=== PATIENT | male | born 1950 | race Caucasian/White ===

== ENCOUNTER 2016-08-03 17:23 | Inpatient (IN) | payer MEDICARE, MEDICAID ==
[2016-08-03] MEDS ORDERED: Ketamine 50 mg/mL 10mL Vial IM STA (17:25)
[2016-08-03] MEDS ORDERED: Ketamine 50 mg/mL 10mL Vial ONE (17:25)
--- NOTE | 2016-08-03 17:26 | ED Physician Chart ---
Chief Complaint/HPI - Patient Information Date Seen:: 08/03/16 Time Seen:: 17:26 Chief Complaint:: agitation History of Present Illness:: 65-year-old male brought in by a nursing facility with acute, severe, constant, agitation that started sometime this morning. Has associated aggressive physical behavior towards staff and other patients. History of limited as patient is uncooperative and appears psychotic History provided by EMS and EMS run sheet Historian:: EMS Review:: Nurse's Note Reviewed, EMS run form Reviewed, Transfer documents Reviewed Review of Systems - Review of Systems Other: Complete system review apparently otherwise unremarkable except as noted in history of present illness. Difficult to obtain a thorough ROS due to uncooperative behavior and acute psychosis Past Medical History - Past Medical History Past Medical History: HTN, DM, Dementia, Other (history of UTIs) Family History: None Social History: Non Smoker, No Alcohol, No Drug Use Surgical History: None Psychiatricy History: Dementia Medication: Reviewed Family Medical History - Family Member Mother History Unknown: Yes Ethnicity: Non- Physical Exam - Physical Examination Other:: INITIAL VITAL SIGNS: Reviewed by me GENERAL: Alert and uncooperative and physically violent. Kicking EMS and trying to punch nursing staff HEAD: Head is normocephalic and atraumatic EYES: EOMI. PERRL. No scleral icterus. No conjunctival injection ENT: Moist mucous membranes. NECK: Supple. No masses. Full range of motion RESPIRATORY: No tachypnea. Clear breath sounds bilaterally. No wheezing, rales, or rhonchi CV: Regular rate and rhythm. No murmurs, rubs, or gallops ABDOMEN: Soft, non-distended, non-tender. No guarding. No rebound. No masses. EXTREMITIES: No deformity. No cyanosis. No edema. SKIN: Warm and dry. No obvious rashes. NEUROLOGIC: Alert and oriented. Face is symmetric. Speech is normal. Moves all extremities equally. Motor and sensory distally intact. Labs/Radiology/EKG Results - Lab Results Results: Lab Results 08/03/16 08/03/16 08/03/16 Range/Units 17:35 17:35 17:35 WBC 9.5 (4.8-10.8) Th/cmm RBC 4.60 (3.80-5.80) Mil/cmm Hgb 13.1 (12.6-17.4) gm/dL Hct 40.5 (39.0-49.0) % MCV 87.9 (80-99) fl MCH 28.5 (27.0-31.0) pg MCHC Differential 32.4 (28.0-36.0) pg RDW 13.2 (11.5-20.0) % Plt Count 222 (150-400) Th/cmm MPV 9.3 fl Neutrophils % 59.0 (40.0-80.0) % Lymphocytes % 32.5 (20.0-50.0) % Monocytes % 6.8 (2.0-10.0) % Eosinophils % 1.4 (0.0-5.0) % Basophils % 0.3 (0.0-2.0) % Sodium 145 (136-145) mEq/L Potassium 3.8 (3.5-5.1) mEq/L Chloride 106 (98-107) mEq/L Carbon Dioxide 24.7 (21.0-31.0) mEq/L Anion Gap 18.1 H (7.0-16.0) BUN 21 (7-25) mg/dL Creatinine 1.1 (0.7-1.3) mg/dL Est GFR ( Amer) > 60.0 (>90) ml/min Est GFR (Non-Af Amer) > 60.0 ml/min BUN/Creatinine Ratio 19.1 Glucose 129 H (70-105) mg/dL Calcium 9.3 (8.6-10.3) mg/dL Total Bilirubin 0.3 (0.3-1.0) mg/dL AST 10 L (13-39) U/L ALT 10 (7-52) U/L Alkaline Phosphatase 47 (34-104) U/L Total Protein 6.7 (6.0-8.3) gm/dL Albumin 4.0 L (4.2-5.5) gm/dL Globulin 2.7 gm/dL Albumin/Globulin Ratio 1.5 (1.0-1.8) Triglycerides 114 (<150) mg/dL Cholesterol 142 (<200) mg/dL LDL Cholesterol Direct 81 (75-193) mg/dL HDL Cholesterol 46 (23-92) mg/dL TSH 0.99 (0.34-5.60) uIU/ml Urine Source Urine Color Urine Clarity (CLEAR) Urine pH Ur Specific [place] (1.005-1.030) Urine Protein (NEGATIVE) mg/dL Urine Glucose (UA) (NEGATIVE) mg/dL Urine Ketones (NEGATIVE) mg/dL Urine Blood (NEGATIVE) Urine Nitrate (NEGATIVE) Urine Bilirubin (NEGATIVE) Urine Urobilinogen (0.2 - 1.0) E.U./dL Ur Leukocyte Esterase (NEGATIVE) Urine RBC (0-5) /hpf Urine WBC (0-5) /hpf Ur Epithelial Cells (FEW) /lpf Urine Bacteria (NONE SEEN) /hpf Salicylates 25.0 L (30.0-100.0) mg/L Urine Opiates Screen (NEGATIVE) Urine Methadone Screen (NEGATIVE) Acetaminophen < 10.0 L (10.0-30.0) ug/mL Ur Barbiturates Screen (NEGATIVE) Ur Tricyclics Screen (NEGATIVE) Ur Phencyclidine Scrn (NEGATIVE) Amphetamines Screen (NEGATIVE) U Methamphetamines Scrn (NEGATIVE) U Benzodiazepines Scrn (NEGATIVE) U Cocaine Metab Screen (NEGATIVE) U Cannabinoids Screen (NEGATIVE) Ethyl Alcohol < 10 (0-10) mg/dL 08/03/16 08/03/16 Range/Units 17:40 17:40 WBC (4.8-10.8) Th/cmm RBC (3.80-5.80) Mil/cmm Hgb (12.6-17.4) gm/dL Hct (39.0-49.0) % MCV (80-99) fl MCH (27.0-31.0) pg MCHC Differential (28.0-36.0) pg RDW (11.5-20.0) % Plt Count (150-400) Th/cmm MPV fl Neutrophils % (40.0-80.0) % Lymphocytes % (20.0-50.0) % Monocytes % (2.0-10.0) % Eosinophils % (0.0-5.0) % Basophils % (0.0-2.0) % Sodium (136-145) mEq/L Potassium (3.5-5.1) mEq/L Chloride (98-107) mEq/L Carbon Dioxide (21.0-31.0) mEq/L Anion Gap (7.0-16.0) BUN (7-25) mg/dL Creatinine (0.7-1.3) mg/dL Est GFR ( Amer) (>90) ml/min Est GFR (Non-Af Amer) ml/min BUN/Creatinine Ratio Glucose (70-105) mg/dL Calcium (8.6-10.3) mg/dL Total Bilirubin (0.3-1.0) mg/dL AST (13-39) U/L ALT (7-52) U/L Alkaline Phosphatase (34-104) U/L Total Protein (6.0-8.3) gm/dL Albumin (4.2-5.5) gm/dL Globulin gm/dL Albumin/Globulin Ratio (1.0-1.8) Triglycerides (<150) mg/dL Cholesterol (<200) mg/dL LDL Cholesterol Direct (75-193) mg/dL HDL Cholesterol (23-92) mg/dL TSH (0.34-5.60) uIU/ml Urine Source CLEAN C Urine Color YELLOW Urine Clarity CLEAR (CLEAR) Urine pH 5.5 Ur Specific [place] 1.025 (1.005-1.030) Urine Protein 30 H (NEGATIVE) mg/dL Urine Glucose (UA) NEGATIVE (NEGATIVE) mg/dL Urine Ketones 15 H (NEGATIVE) mg/dL Urine Blood SMALL H (NEGATIVE) Urine Nitrate NEGATIVE (NEGATIVE) Urine Bilirubin NEGATIVE (NEGATIVE) Urine Urobilinogen 0.2 (0.2 - 1.0) E.U./dL Ur Leukocyte Esterase NEGATIVE (NEGATIVE) Urine RBC 2-5 H (0-5) /hpf Urine WBC NONE SEEN (0-5) /hpf Ur Epithelial Cells NONE SEEN (FEW) /lpf Urine Bacteria NONE SEEN (NONE SEEN) /hpf Salicylates (30.0-100.0) mg/L Urine Opiates Screen NEGATIVE (NEGATIVE) Urine Methadone Screen NEGATIVE (NEGATIVE) Acetaminophen (10.0-30.0) ug/mL Ur Barbiturates Screen NEGATIVE (NEGATIVE) Ur Tricyclics Screen NEGATIVE (NEGATIVE) Ur Phencyclidine Scrn NEGATIVE (NEGATIVE) Amphetamines Screen NEGATIVE (NEGATIVE) U Methamphetamines Scrn NEGATIVE (NEGATIVE) U Benzodiazepines Scrn NEGATIVE (NEGATIVE) U Cocaine Metab Screen NEGATIVE (NEGATIVE) U Cannabinoids Screen NEGATIVE (NEGATIVE) Ethyl Alcohol (0-10) mg/dL - EKG Interpretations Comments:: 12-lead EKG Interpretation by Beba Proctor MD: Normal Sinus Rhythm with ventricular rate of 84 beats per minute Normal axis Normal intervals No acute ST or T wave changes. No obvious STEMI ED Septic Shock - . Is Septic Shock (SBP<90, OR Lactate>4 mmol\L) present?: No Reassessment (Disposition) - Reassessment Reassessment:: Patient arrived with extremely aggressive behavior. He was kicking the EMS workers and trying to punch our nursing staff here in the ER. After multiple attempts to divert the patient from his aggressive behavior, we did give intramuscular sedation. Patient then relaxed and calm down. Cooperative. I will signs and labs were able to be drawn. Ultimately patient was cleared for admission to the geriatric psych unit. Reassessment Condition:: Unchanged - Diagnosis Diagnosis:: Acute psychosis, NOS - Aftercare/Follow up Instructions Aftercare/Follow-Up Instructions:: Counseled pt regarding lab results/diagnosis & need follow up, Refer to Discharge Instructions - Patient Disposition Discharge/Transfer:: Acute Care w/in this hosp Admitted to:: [facility] Admitting Medical Physician:: Paul Medellin Admitting Psych Physician:: Dante Higgins Condition at Disposition:: Stable
[2016-08-03 17:47] LABS: % BASOPHILS 0.3 % (0.0-2.0); % EOSINOPHILS 1.4 % (0.0-5.0); % LYMPHOCYTES 32.5 % (20.0-50.0); % MONOCYTES 6.8 % (2.0-10.0); HEMATOCRIT 40.5 % (39.0-49.0); HEMOGLOBIN 13.1 gm/dL (12.6-17.4); MEAN CELL VOLUME 87.9 fl (80-99); MEAN CORPUSCULAR HEMOGLOBIN 28.5 pg (27.0-31.0); MEAN CORPUSCULAR HGB CONC 32.4 pg (28.0-36.0); MEAN PLATELET VOLUME 9.3 fl; NEUTROPHILE ABSOLUTE 5.7 Th/cmm (1.8-8.0); PLATELET COUNT 222 Th/cmm (150-400); RED CELL DISTRIBUTION WIDTH 13.2 % (11.5-20.0); WHITE BLOOD COUNT 9.5 Th/cmm (4.8-10.8)
[2016-08-03 19:03] LABS: URINE BILIRUBIN NEGATIVE (NEGATIVE); URINE BLOOD SMALL (NEGATIVE); URINE COLOR YELLOW; URINE GLUCOSE (UA) NEGATIVE (NEGATIVE); URINE KETONE 15 mg/dL (NEGATIVE); URINE PH 5.5; URINE PROTEIN 30 mg/dL (NEGATIVE); URINE UROBILINOGEN 0.2 E.U./dL (0.2 - 1.0)
[2016-08-03 19:04] LABS: ACETAMINOPHEN < 10.0 ug/mL (10.0-30.0); ALB/GLOB RATIO 1.5 (1.0-1.8); ALKALINE PHOSPHATASE 47 U/L (34-104); ANION GAP 18.1 (7.0-16.0); BILIRUBIN,TOTAL 0.3 mg/dL (0.3-1.0); BUN - UREA NITROGEN 21 mg/dL (7-25); BUN/CREATININE RATIO 19.1; CALCIUM SERUM 9.3 mg/dL (8.6-10.3); CARBON DIOXIDE 24.7 mEq/L (21.0-31.0); CHLORIDE 106 mEq/L (98-107); CHOLESTEROL 142 mg/dL (<200); CREATININE - SERUM 1.1 mg/dL (0.7-1.3); GLUCOSE 129 mg/dL (70-105); POTASSIUM SERUM 3.8 mEq/L (3.5-5.1); SGOT 10 U/L (13-39); SGPT/ALT 10 U/L (7-52); SODIUM SERUM 145 mEq/L (136-145); TRIGLYCERIDES 114 mg/dL (<150)
[2016-08-03 19:04] LABS: URINE BACTERIA NONE SEEN /hpf (NONE SEEN); URINE EPITHELIAL CELLS NONE SEEN /lpf (FEW); URINE WBC NONE SEEN /hpf (0-5)
[2016-08-03 19:27] LABS: AMPHETAMINE URINE NEGATIVE (NEGATIVE); BARBITURATES URINE NEGATIVE (NEGATIVE); METHADONE URINE NEGATIVE (NEGATIVE)
--- NOTE | 2016-08-03 21:19 | Admit Criteria Form ---
Admit Criteria Forms - Admit Criteria Diagnosis: PSYCHIATRIC DISORDERS Clinical Indications for Inpatient Care (Place 'X' for any and all applicable criteria): Ongoing inpatient care may be needed for ANY ONE of the following(1)(2)(3)(4)(6) (7)(8): [ ]I. Danger to self or others not manageable at lower level of care. [ ]II. Grave disability (eg, inability to perform self care necessary at lower level of care) [ ]III. Agitation or inappropriate behavior interfering with care for primary condition (eg, attempting to discontinue lines or drains prematurely, unable to cooperate with respiratory care) [X]IV. Severe disability or disorder indicated by ALL of the following: [X]a) Severe behavioral health disorder-related symptoms or condition indicated by ANY ONE of the following: [ ]i) Severe problem with cognition, memory, judgment, or impulse control [X]ii) Severe clinical manifestations (eg, hallucinations, delusions, other acute psychotic symptoms, doroteo, extreme agitation or anxiety) [X]b) Patient management at lower level of care is not feasible until acute intervention or modification is initiated. Extended stay beyond goal length of stay for the primary condition may be indicated when ANY ONE of the following is present: (1)(2)(3)(4): [ ]a) Patient is a danger to self or others and not manageable at lower level of care. [ ]b) Behavior crisis management, including physical or chemical restraints, is required and is not available at a lower level of care. [ ]c) Behavioral symptoms (e.g., agitation, somnolence, inappropriate behavior) are present, and are not manageable at a lower level of care. [ ]d) Patient cannot understand follow-up treatment and crisis plan. [ ]e) Provider and supports are not sufficiently available at lower level of care. [ ]f) Patient cannot participate (e.g., verify absence of plan for harm) and is in needed of monitoring. The original [facility] content created by [facility] has been revised. The portions of the content which have been revised are identified through the use of italic text or in bold, and [facility] has neither reviewed nor approved the modified material. All other unmodified content is copyright [facility]. Please see references footnoted in the original [facility] edition 2016
[2016-08-03] MEDS ORDERED: Maalox 30 mL Cup PO PRN (21:52)
[2016-08-03] MEDS ORDERED: Magnesium Hydroxide (MOM) 30 mL UDC PO PRN (21:52)
[2016-08-03 22:22] VITALS: BP 136/72
[2016-08-04] MEDS: Multivitamin Tab PO SCH (08:43)
[2016-08-04] MEDS: Ferrous Sulfate 325 MG TAB PO SCH (08:43)
[2016-08-04] MEDS: Atorvastatin Calcium 10 MG TAB PO SCH ×2 (20:40→21:00)
[2016-08-04] MEDS: INSULIN ASPART SLIDING SCALE 100 UNITS/ML UNIT SUBQ SCH (21:15)
--- NOTE | 2016-08-04 22:16 | History & Physical ---
ADMIT DATE: 08/04/2016 REASON FOR ADMISSION: Psychiatric disorder. HISTORY OF PRESENT ILLNESS: This is a 65-year-old male with underlying history of diabetes, hyperlipidemia, seizure disorders, dementia, psychiatric disorders, who was admitted to [facility] for evaluation of underlying exacerbation of psychiatric disorders by Dr. Higgins. Dr. Higgins requested medical H and P on this patient. The patient denies any complaints at the time of evaluation. He seems to have very confused. PAST MEDICAL HISTORY: Diabetes, hyperlipidemia, seizure disorders, psych disorders, and dementia. PAST SURGICAL HISTORY: None reported. SOCIAL HISTORY: Lives in nursing facility. No reported alcohol, tobacco, or street drug use. CURRENT MEDICATIONS: The patient is currently on acetaminophen, Lipitor, Plavix, Depakote, docusate, Aricept, Pepcid, iron sulphate, insulin, magnesium, Namenda, metformin, Seroquel, and Ambien. REVIEW OF SYSTEMS: As per HPI, the patient seems somewhat confused, difficult to obtain. PHYSICAL EXAMINATION: VITAL SIGNS: Temperature 97.7, pulse 66, respirations 20, blood pressure 123/69, and oxygen 99 % on room air. GENERAL APPEARANCE: The patient does not seem in acute distress. HEART: S1, S2 normal. LUNGS: Clear to auscultation. ABDOMEN: Soft, nontender, and nondistended. NEUROLOGIC: The patient is awake, confused. Moves all extremities. Grossly nonfocal. AVAILABLE LABORATORY DATA: Reviewed ASSESSMENT: 1. Diabetes. 2. Hyperlipidemia. 3. Seizure disorder. 4. Alzheimer dementia. 5. Psych disorder. PLAN: Discussed with the patient regarding importance of current medications and advised to take medications. Continue current medications. Psych evaluation and management per psychiatrist. Blood sugars will be monitored by [employer] and sliding scale will be given. Discussed the patient's condition and plan of care with the nursing staff. Thank you, Dr. Ronaldo Davies for allowing me to participate in the care of this patient. The patient appeared medically stable to participate in activity at the [facility]. JOB# [id number] MTDJosh
--- NOTE | 2016-08-04 22:26 | Psychosocial Evaluation ---
DATE OF SERVICE: 08/04/2016 JUSTIFICATION FOR HOSPITALIZATION: The patient was brought in by nursing facilities with acute, severe, constant agitation, and aggressive behaviors. CHIEF COMPLAINT: "What you want." HISTORY OF PRESENT ILLNESS: This is a 65-year-old male, agitated, at nursing facility, aggressive towards staff, violent towards staff, uncooperative. On [id number], not answering any questions, "What you want? Go away." PAST PSYCHIATRIC HISTORY: Noted history of dementia. FAMILY HISTORY: Unknown. SOCIAL HISTORY: Living in a nursing facility, unclear social support system, nonsmoker, no alcohol, an no drugs. MEDICATIONS: Reviewed. MENTAL STATUS EXAMINATION: Stated age, a little eye contact. Speech decreased content, not really communicating with me. Her mood is "okay." Affect is flat. Thought processes seemed confused and disoriented. Thought content, no overt SI or HI. Unclear psychotic symptoms. Poor insight and poor judgment. Poor impulse control. Poor orientation. PROVISIONAL DIAGNOSES: Psychosis, unspecified. Dementia with behaviors. MEDICAL DIAGNOSIS: Diabetes. Please see full H and P. ESTIMATED LENGTH OF STAY: 7-10 days. ASSESSMENT: The patient is requiring inpatient hospitalization, decompensating, agitated, and aggressive. PLAN: We will continue to monitor, continue medications as noted. We will reach out to family for collateral if needed. TREATMENT PLAN: Includes group as well as milieu therapy. CONDITIONS FOR DISCHARGE: Improved mood and improved affect. Better control of any aggressive symptoms. [facility]# [id number]
[2016-08-05] MEDS: INSULIN ASPART SLIDING SCALE 100 UNITS/ML UNIT SUBQ SCH ×4 (06:40→21:07)
[2016-08-05] MEDS: Multivitamin Tab PO SCH (08:21)
[2016-08-05] MEDS: Ferrous Sulfate 325 MG TAB PO SCH (08:21)
[2016-08-05] MEDS ORDERED: Haloperidol Lactate 5 mg/mL 1mL Vial ONE (11:09)
[2016-08-05] MEDS ORDERED: Haloperidol Lactate 5 mg/mL 1mL Vial IM ONE (11:11)
[2016-08-05] MEDS: Atorvastatin Calcium 10 MG TAB PO SCH (21:07)
--- NOTE | 2016-08-06 06:33 | Progress Notes ---
DATE: SUBJECTIVE: The patient seen, chart reviewed, discussed with staff. The patient brought into the hospital, aggressive behaviors, agitation. On [id number] the patient wandering and not really answering any questions, has no idea why he is here, confused. I did leave a voice message for son yesterday, currently pending a call back. The patient remains impulsive, unpredictable. He is following rules and directions at this time, but is somewhat intrusive. ASSESSMENT: The patient remains dangerous, confused, disoriented. PLAN: We will continue to monitor. We will try to increase collateral when son calls me back, titrate medications as tolerated. JOB# [id number]
[2016-08-06] MEDS: INSULIN ASPART SLIDING SCALE 100 UNITS/ML UNIT SUBQ SCH ×4 (08:02→21:08)
[2016-08-06] MEDS: Ferrous Sulfate 325 MG TAB PO SCH (08:13)
[2016-08-06] MEDS: Multivitamin Tab PO SCH (08:16)
[2016-08-06] MEDS: Atorvastatin Calcium 10 MG TAB PO SCH (20:52)
--- NOTE | 2016-08-06 23:46 | Progress Notes ---
DATE: 08/06/2016 SUBJECTIVE: The patient seen, chart reviewed, discussed with staff. The patient required emergency medications yesterday, Haldol, Ativan, Benadryl. He was aggressive. He was hitting staff, hitting other residents. Remains confused, bizarre. I did try to call son a few days ago, left a voice message, I have not heard back from him. The patient is requiring a lot of redirection prompting for ADLs, prompting to eat, remains withdrawn. ASSESSMENT: The patient remains dangerous, confused, still requiring emergency intramuscular medications. PLAN: Continue to monitor. We will continue to reach out to family. We will increase dosing of Seroquel to try to address his aggressive behaviors. We will increase Seroquel today. JOB# [id number]
[2016-08-07] MEDS: INSULIN ASPART SLIDING SCALE 100 UNITS/ML UNIT SUBQ SCH ×4 (06:54→21:02)
[2016-08-07] MEDS: Multivitamin Tab PO SCH (09:14)
[2016-08-07] MEDS: Ferrous Sulfate 325 MG TAB PO SCH (09:14)
[2016-08-07] MEDS: Atorvastatin Calcium 10 MG TAB PO SCH (20:59)
--- NOTE | 2016-08-07 22:10 | Progress Notes ---
DATE: 08/07/2016 SUBJECTIVE: The patient was seen and evaluated. The patient's chart reviewed. Overnight staff reported the patient continues to be disorganized, which resulted in hitting other members and other staff members at times needing emergent medications. Today on [id number] evaluation, the patient was observed to be disorganized, minimally interactive, and poor historian. MENTAL STATUS EXAMINATION: Disorganized resulting in aggressive and assaultive behavior as noted above. ASSESSMENT AND PLAN: The patient is a 65-year-old male who continues to be paranoid, suspicious, engaging in aggressive behavior, and hitting others. At this point, we will continue with the current medication regimen, which includes the titration of quetiapine, which was recently increased from 12.5 mg twice a day to 50 mg total a day. We will continue monitoring, evaluating, and targeting the patient's psychotic symptoms, which resulted in assaultive behavior. [facility]# [id number]
[2016-08-08] MEDS: INSULIN ASPART SLIDING SCALE 100 UNITS/ML UNIT SUBQ SCH ×4 (06:47→20:13)
[2016-08-08] MEDS: Ferrous Sulfate 325 MG TAB PO SCH (08:57)
[2016-08-08] MEDS: Multivitamin Tab PO SCH (08:57)
[2016-08-08] MEDS: Atorvastatin Calcium 10 MG TAB PO SCH (20:03)
--- NOTE | 2016-08-08 20:16 | Progress Notes ---
DATE: 08/08/[address] Bowers. SUBJECTIVE: The patient was seen and evaluated. The patient's chart reviewed. Overnight nursing staff reported the patient observed to be disorganized, wandering. Today on [id number] evaluation, the patient observed to be hitting door, banging on door with his hands in a lot of redirection. MENTAL STATUS EXAMINATION: Disorganized, resulting in aggressive behavior. As noted above, he hits the doors. ASSESSMENT AND PLAN: This is a 65-year-old male who continues to be paranoid, suspicious, and disorganized. Recently increased Seroquel to target the patient's psychotic symptoms . We will continue with the current medication regimen to still reaching a steady state to reduce the risk of assaultive behavior. [facility]# [id number]
[2016-08-09] MEDS: INSULIN ASPART SLIDING SCALE 100 UNITS/ML UNIT SUBQ SCH ×4 (06:32→20:44)
[2016-08-09] MEDS: Ferrous Sulfate 325 MG TAB PO SCH (09:35)
[2016-08-09] MEDS: Multivitamin Tab PO SCH (09:35)
[2016-08-09] MEDS: Atorvastatin Calcium 10 MG TAB PO SCH (20:43)
--- NOTE | 2016-08-09 20:57 | Progress Notes ---
DATE: 08/09/2016 SUBJECTIVE: The patient was seen, chart reviewed, and discussed with staff. The patient remains wandering, disorganized, hitting door, banging at times, requiring a lot of redirection, still aggressive. The patient has required emergency medications while on the unit, agitation, aggressive behaviors, psychotic agitation. On [id number], the patient remains confused, refusing interview. I did try to contact family last week. I did not hear back from them. We will try again today. Medications reviewed. Labs were reviewed. ASSESSMENT: The patient remains symptomatic, still aggressive, not safe, still impulsive, and unpredictable. PLAN: We will continue to monitor. We will reach out to family today and continue to adjust his medications. [facility]# [id number]
[2016-08-10] MEDS: INSULIN ASPART SLIDING SCALE 100 UNITS/ML UNIT SUBQ SCH ×4 (06:29→20:51)
[2016-08-10] MEDS: Ferrous Sulfate 325 MG TAB PO SCH (08:25)
[2016-08-10] MEDS: Multivitamin Tab PO SCH (08:25)
[2016-08-10] MEDS: Atorvastatin Calcium 10 MG TAB PO SCH (20:49)
--- NOTE | 2016-08-11 04:21 | Progress Notes ---
DATE: 08/10/2016 SUBJECTIVE: The patient is seen, chart reviewed, discussed with staff. I spoke with the patient's son yesterday, history of stroke, currently needing a high level of care in dementia unit, very agitated, becomes combative, violent and aggressive, son is hoping for more aggressive medication adjustments so that they can keep him in the facility. On [id number], the patient is confused, disoriented, gets lost on the unit, not really saying much, impoverished thought processes, remains impulsive, unpredictable, currently not safe for a lower level of care. On a positive note, he is taking his medications, no side effect, tolerating well, eating with prompting, sleeping fairly well. ASSESSMENT: The patient remains symptomatic, still aggressive, impulsive. PLAN: We will continue to monitor. I will be titrating his doses of Seroquel. We will also start him on Lexapro to try to improve his mood and impulse control and aggressive behaviors. [facility]# [id number]
[2016-08-11] MEDS: INSULIN ASPART SLIDING SCALE 100 UNITS/ML UNIT SUBQ SCH ×4 (06:36→21:10)
[2016-08-11] MEDS: Multivitamin Tab PO SCH (08:14)
[2016-08-11] MEDS: Ferrous Sulfate 325 MG TAB PO SCH (08:14)
--- NOTE | 2016-08-11 19:06 | General Progress Note ---
Subjective - Review of Systems Service Date: 08/11/16 Subjective: Patient doing fine denied any complaints Objective - Results Result Diagrams: 08/03/16 17:35 08/03/16 17:35 Recent Labs: Laboratory Last Values WBC 9.5 Th/cmm (4.8-10.8) 08/03/16 17:35 RBC 4.60 Mil/cmm (3.80-5.80) 08/03/16 17:35 Hgb 13.1 gm/dL (12.6-17.4) 08/03/16 17:35 Hct 40.5 % (39.0-49.0) 08/03/16 17:35 MCV 87.9 fl (80-99) 08/03/16 17:35 MCH 28.5 pg (27.0-31.0) 08/03/16 17:35 MCHC Differential 32.4 pg (28.0-36.0) 08/03/16 17:35 RDW 13.2 % (11.5-20.0) 08/03/16 17:35 Plt Count 222 Th/cmm (150-400) 08/03/16 17:35 MPV 9.3 fl 08/03/16 17:35 Neutrophils % 59.0 % (40.0-80.0) 08/03/16 17:35 Lymphocytes % 32.5 % (20.0-50.0) 08/03/16 17:35 Monocytes % 6.8 % (2.0-10.0) 08/03/16 17:35 Eosinophils % 1.4 % (0.0-5.0) 08/03/16 17:35 Basophils % 0.3 % (0.0-2.0) 08/03/16 17:35 Sodium 145 mEq/L (136-145) 08/03/16 17:35 Potassium 3.8 mEq/L (3.5-5.1) 08/03/16 17:35 Chloride 106 mEq/L (98-107) 08/03/16 17:35 Carbon Dioxide 24.7 mEq/L (21.0-31.0) 08/03/16 17:35 Anion Gap 18.1 (7.0-16.0) H 08/03/16 17:35 BUN 21 mg/dL (7-25) 08/03/16 17:35 Creatinine 1.1 mg/dL (0.7-1.3) 08/03/16 17:35 Est GFR ( Amer) > 60.0 ml/min (>90) 08/03/16 17:35 Est GFR (Non-Af Amer) > 60.0 ml/min 08/03/16 17:35 BUN/Creatinine Ratio 19.1 08/03/16 17:35 Glucose 129 mg/dL (70-105) H 08/03/16 17:35 POC Glucose 146 MG/DL (70 - 105) H 08/11/16 16:52 Calcium 9.3 mg/dL (8.6-10.3) 08/03/16 17:35 Total Bilirubin 0.3 mg/dL (0.3-1.0) 08/03/16 17:35 AST 10 U/L (13-39) L 08/03/16 17:35 ALT 10 U/L (7-52) 08/03/16 17:35 Alkaline Phosphatase 47 U/L (34-104) 08/03/16 17:35 Total Protein 6.7 gm/dL (6.0-8.3) 08/03/16 17:35 Albumin 4.0 gm/dL (4.2-5.5) L 08/03/16 17:35 Globulin 2.7 gm/dL 08/03/16 17:35 Albumin/Globulin Ratio 1.5 (1.0-1.8) 08/03/16 17:35 Triglycerides 114 mg/dL (<150) 08/03/16 17:35 Cholesterol 142 mg/dL (<200) 08/03/16 17:35 LDL Cholesterol Direct 81 mg/dL (75-193) 08/03/16 17:35 HDL Cholesterol 46 mg/dL (23-92) 08/03/16 17:35 TSH 0.99 uIU/ml (0.34-5.60) 08/03/16 17:35 Urine Source CLEAN C 08/03/16 17:40 Urine Color YELLOW 08/03/16 17:40 Urine Clarity CLEAR (CLEAR) 08/03/16 17:40 Urine pH 5.5 08/03/16 17:40 Ur Specific [place] 1.025 (1.005-1.030) 08/03/16 17:40 Urine Protein 30 mg/dL (NEGATIVE) H 08/03/16 17:40 Urine Glucose (UA) NEGATIVE mg/dL (NEGATIVE) 08/03/16 17:40 Urine Ketones 15 mg/dL (NEGATIVE) H 08/03/16 17:40 Urine Blood SMALL (NEGATIVE) H 08/03/16 17:40 Urine Nitrate NEGATIVE (NEGATIVE) 08/03/16 17:40 Urine Bilirubin NEGATIVE (NEGATIVE) 08/03/16 17:40 Urine Urobilinogen 0.2 E.U./dL (0.2 - 1.0) 08/03/16 17:40 Ur Leukocyte Esterase NEGATIVE (NEGATIVE) 08/03/16 17:40 Urine RBC 2-5 /hpf (0-5) H 08/03/16 17:40 Urine WBC NONE SEEN /hpf (0-5) 08/03/16 17:40 Ur Epithelial Cells NONE SEEN /lpf (FEW) 08/03/16 17:40 Urine Bacteria NONE SEEN /hpf (NONE SEEN) 08/03/16 17:40 Salicylates 25.0 mg/L (30.0-100.0) L 08/03/16 17:35 Urine Opiates Screen NEGATIVE (NEGATIVE) 08/03/16 17:40 Urine Methadone Screen NEGATIVE (NEGATIVE) 08/03/16 17:40 Acetaminophen < 10.0 ug/mL (10.0-30.0) L 08/03/16 17:35 Ur Barbiturates Screen NEGATIVE (NEGATIVE) 08/03/16 17:40 Valproic Acid 34.3 ug/mL (50.0-100.0) L 08/11/16 08:00 Ur Tricyclics Screen NEGATIVE (NEGATIVE) 08/03/16 17:40 Ur Phencyclidine Scrn NEGATIVE (NEGATIVE) 08/03/16 17:40 Amphetamines Screen NEGATIVE (NEGATIVE) 08/03/16 17:40 U Methamphetamines Scrn NEGATIVE (NEGATIVE) 08/03/16 17:40 U Benzodiazepines Scrn NEGATIVE (NEGATIVE) 08/03/16 17:40 U Cocaine Metab Screen NEGATIVE (NEGATIVE) 08/03/16 17:40 U Cannabinoids Screen NEGATIVE (NEGATIVE) 08/03/16 17:40 Ethyl Alcohol < 10 mg/dL (0-10) 08/03/16 17:35 RPR NONREACTIVE (NONREACTIVE) 08/03/16 17:35 - Physical Exam Vitals and I&O: Vital Signs Temp 98 F 08/11/16 15:43 Pulse 75 08/11/16 15:43 Resp 20 08/11/16 15:43 BP 130/59 08/11/16 15:43 Pulse Ox 97 08/11/16 15:43 Intake & Output 08/11/16 08/11/16 08/12/16 06:59 18:59 06:59 Intake Total 120 1500 Balance 120 1500 Intake: Oral 120 1500 Other: # Voids 3 5 # Bowel Movements 1 Active Medications: Current Medications Acetaminophen (Tylenol) 650 mg PO Q4HR PRN PRN Reason: Mild Pain / Temp above 100 Stop: 10/02/16 21:51 Al Hydrox/Mg Hydrox/Simethicone (Maalox) 30 ml PO Q4HR PRN PRN Reason: GI DISTRESS Stop: 10/02/16 21:51 Atorvastatin Calcium (Lipitor) 10 mg PO HS [facility] PRN Reason: Protocol Stop: 10/03/16 20:59 Last Admin: 08/10/16 20:49 Dose: 10 mg Clopidogrel Bisulfate (Plavix) 75 mg PO DAILY [facility] Stop: 10/03/16 08:59 Last Admin: 08/11/16 08:14 Dose: 75 mg Divalproex Sodium (Depakote Sprinkle) 375 mg PO 0800 [facility] PRN Reason: Protocol Stop: 10/03/16 07:59 Last Admin: 08/11/16 08:13 Dose: 375 mg Divalproex Sodium (Depakote Sprinkle) 500 mg PO BID@1200,1600 [facility] PRN Reason: Protocol Stop: 10/03/16 11:59 Last Admin: 08/11/16 16:37 Dose: 500 mg Docusate Sodium (Colace) 100 mg PO BID [facility] Stop: 10/03/16 08:59 Last Admin: 08/11/16 16:38 Dose: 100 mg Donepezil HCl (Aricept) 5 mg PO HS [facility] Stop: 10/03/16 20:59 Last Admin: 08/10/16 20:49 Dose: 5 mg Escitalopram Oxalate (Lexapro) 5 mg PO DAILY [facility] PRN Reason: Protocol Stop: 10/10/16 08:59 Famotidine (Pepcid) 20 mg PO DAILY [facility] Stop: 10/03/16 08:59 Last Admin: 08/11/16 08:14 Dose: 20 mg Ferrous Sulfate (Iron) 325 mg PO DAILY [facility] Stop: 10/03/16 08:59 Last Admin: 08/11/16 08:14 Dose: 325 mg Insulin Aspart (Novolog Insulin Sliding Scale) 0 units SUBQ ACHS [facility] PRN Reason: Protocol Stop: 10/03/16 20:59 Last Admin: 08/11/16 18:55 Dose: Not Given Lorazepam (Ativan) 0.5 mg PO Q6HR PRN; Protocol PRN Reason: Anxiety Stop: 10/10/16 15:07 Magnesium Hydroxide (Milk Of Magnesia) 30 ml PO HS PRN PRN Reason: Constipation Memantine (Namenda) 10 mg PO BID [facility] Stop: 10/03/16 08:59 Last Admin: 08/11/16 08:15 Dose: 10 mg Metformin HCl (Glucophage) 500 mg PO BIDWM [facility] Stop: 10/05/16 17:59 Last Admin: 08/11/16 18:55 Dose: 500 mg Multivitamins/Vitamin C (Theragran) 1 tab PO DAILY [facility] Stop: 10/03/16 08:59 Last Admin: 08/11/16 08:14 Dose: 1 tab Quetiapine Fumarate (Seroquel) 12.5 mg PO DAILY [facility] PRN Reason: Protocol Stop: 10/03/16 08:59 Last Admin: 08/11/16 08:14 Dose: 12.5 mg Quetiapine Fumarate 50 mg/ (Quetiapine Fumarate 25 mg) 75 mg PO HS [facility] Stop: 10/10/16 20:59 Zolpidem Tartrate (Ambien) 5 mg PO HS PRN PRN Reason: Insomnia Stop: 10/10/16 15:05 Cardiovascular: Regular rate Lungs: Clear to auscultation Assessment/Plan - Assessment Assessment: Diabetes Mellitus Hyperlipidemia GERD Alzheimer's dementia Psych disorder - Plan Plan: patient doing fine Continue current treatment Psych management per Psychiatrist Nutritional Asmnt/Malnutr-PDOC - Dietary Evaluation Malnutrition Findings (Please click <Entered> for more info): Nutritional Asmnt/Malnutrition Start: 08/05/16 15: 08 Text: Status: Complete Freq: Document 08/05/16 15:08 GSUN (Rec: 08/05/16 15:33 GSUN [id number]) Nutritional Asmnt/Malnutrition Patient General Information Nutritional Screening Moderate Risk Screening Diagnosis Reason for visit: acute psychosis Pertinent Medical Hx/Surgical Hx DM, hyperlipidemia, seizure disorders, psych disorder, Alzheimer's dementia Subjective Information 65 year old male from SNF. Pt was in isolation room due to aggressive behavior during visit. No meal activity recorded on EMR. Spoke to nursing staff, nursing staff stated pt is confused and may be aggressive at times, " sometimes eat and sometimes does not depending on mood." Current Diet Order/ Nutrition Support Regular, CALLY, CCHO Pertinent Medications Maalox, Lipitor, Colace, Pepcid, Iron, Novolog, MOM, Glucophage, Theragran, Seroquel Pertinent Labs 08/03: glucose 129H Nutritional Hx/Data Height 1.8 m Height (Calculated Centimeters) 180.3 Current Weight (lbs) 79.832 kg Weight (Calculated Kilograms) 79.8 Weight (Calculated Grams) 28487.3 [place] Body Weight 172 Weight Status Approriate GI Symptoms Food Allergies No Usual diet at home [place] [facility]: regular, CALLY, CCHO Skin Integrity/Comment: Jamil 19. Skin intact. Estimated Nutritional Goals BEE in Kcals: Using Current wt Calories/Kcals/Kg CBW 176lb/80kg Kcals Calculated 2000-2400kcal (25-30kcal/kg) Protein: Using Current wt Protein Calculated 80g (1g/kg) Fluid: ml 2000-2400ml (1ml/kcal) Nutritional Problem 1. Problem Problem Iandequate carbohydrate intake related to Etiology estimated nutritional needs aeb Signs/Symptoms: current diet order [id number] does not provide to meet minimum CCHO needs. Intervention/Recommendation Comments 1. Recommend [id number] to promote glycemic control while meeting minimal carb needs. 2. Nursing staff to record percent of intake, no meal activities recorded since admission, day 2. Expected Outcomes/Goals Expected Outcomes/Goals 1. PO intake to meet at least 75% of estimated nutritional needs.
[2016-08-11] MEDS: Atorvastatin Calcium 10 MG TAB PO SCH (21:10)
--- NOTE | 2016-08-12 03:38 | Progress Notes ---
DATE: 08/11/2016 SUBJECTIVE: The patient was seen, chart reviewed, and discussed with staff. The patient remains ____confused_, wandering behaviors, history of violence, disoriented, not really talking to me. I did speak with the son yesterday. Son was hoping for more aggressive medication adjustments given his history of violence and aggression, and concerns that he may lose his placement. He is at locked dementia unit and continues to be symptomatic there. Requiring a lot of prompting for ADLs, constant redirection, impulsive, and unpredictable. ASSESSMENT: The patient remains impulsive, still becomes agitated, lashing out behaviors, highly confused, and disoriented. PLAN: Continue to monitor and increase his medications today. JOB# [id number] FREDERICK
[2016-08-12] MEDS: INSULIN ASPART SLIDING SCALE 100 UNITS/ML UNIT SUBQ SCH ×4 (06:33→21:01)
[2016-08-12] MEDS: Ferrous Sulfate 325 MG TAB PO SCH (09:59)
[2016-08-12] MEDS: Multivitamin Tab PO SCH (09:59)
[2016-08-12] MEDS: Escitalopram Oxalate 5 mg Tab PO SCH (10:00)
[2016-08-12] MEDS: Atorvastatin Calcium 10 MG TAB PO SCH (21:00)
--- NOTE | 2016-08-12 23:17 | Progress Notes ---
DATE: 08/12/2016 SUBJECTIVE: The patient seen, chart reviewed, discussed with staff. The patient remains aggressive, impulsive, unpredictable. Staff continues to note behavioral disturbances, agitation, still requiring emergency medications at times, a lot of redirection. Medications continue to be adjusted. He remains combative, explosive, difficult to redirect at times. Currently on Seroquel, tolerating well. Seems to be calming down per staff. They are noticing some positive improvement. His medications are being adjusted and titrated. Medications were reviewed. Labs were reviewed. Eating with prompting. ADLs with prompting. ASSESSMENT: The patient remains symptomatic, still aggressive at times. PLAN: Increase Seroquel today. Monitor closely. The patient remains symptomatic, not safe for lower level of care at this time. JOB# [id number]
[2016-08-13] MEDS: INSULIN ASPART SLIDING SCALE 100 UNITS/ML UNIT SUBQ SCH ×4 (06:32→21:00)
[2016-08-13] MEDS ORDERED: Haloperidol Lactate 5 mg/mL 1mL Vial ONE (07:39)
[2016-08-13] MEDS ORDERED: Haloperidol Lactate 5 mg/mL 1mL Vial IM ONE (07:42)
[2016-08-13] MEDS: Ferrous Sulfate 325 MG TAB PO SCH (08:46)
[2016-08-13] MEDS: Multivitamin Tab PO SCH (08:46)
[2016-08-13] MEDS: Escitalopram Oxalate 5 mg Tab PO SCH (10:00)
[2016-08-13] MEDS: Atorvastatin Calcium 10 MG TAB PO SCH (20:22)
--- NOTE | 2016-08-14 02:29 | Progress Notes ---
DATE: 08/13/2016 SUBJECTIVE: The patient was seen, chart reviewed, and discussed with staff. The patient remains symptomatic, still irritable, aggressive, requiring emergency medications. This morning, agitated, psychotic agitation, violent and aggressive behaviors, poor impulse control, requiring a lot of redirection and prompting. ASSESSMENT: The patient remains symptomatic, still requiring emergency Haldol cocktails, still violent and aggressive, requiring a lot of prompting and redirection. Still dangerous. PLAN: Increase Seroquel today. The patient remains symptomatic, not safe for discharge. JOB# [id number]
[2016-08-14] MEDS: INSULIN ASPART SLIDING SCALE 100 UNITS/ML UNIT SUBQ SCH ×4 (06:34→20:42)
[2016-08-14] MEDS: Multivitamin Tab PO SCH (08:53)
[2016-08-14] MEDS: Escitalopram Oxalate 5 mg Tab PO SCH (08:56)
[2016-08-14] MEDS: Ferrous Sulfate 325 MG TAB PO SCH (08:58)
--- NOTE | 2016-08-14 14:06 | Progress Notes ---
DATE: 08/14/2016 Case was discussed with staff of the patient, reviewed records. This is a 65-year-old male who was admitted because of psychosis. He was aggressive, agitated, and very irritable upon admission. He lives at the nursing facility. No substance abuse. Diagnosis is psychosis and dementia. The patient continues to be confused and demented, unable to make safe plan for self-care or participate in a meaningful conversation, labile, paranoid unable to make safe plan for self-care. He is on Depakote 375 mg daily and 500 mg twice a day and Aricept 5 mg at bedtime, Lexapro 5 mg daily and Namenda 10 mg twice a day and Seroquel 100 mg at bedtime that was increased yesterday to with no side effects, no sedation, no nausea, and no extrapyramidal symptoms. We will continue to work with the patient in group therapy, milieu therapy, and adjust the medication as needed. [facility]# [id number]
[2016-08-14] MEDS: Atorvastatin Calcium 10 MG TAB PO SCH (20:23)
[2016-08-15] MEDS: INSULIN ASPART SLIDING SCALE 100 UNITS/ML UNIT SUBQ SCH ×4 (06:33→20:49)
[2016-08-15] MEDS: Escitalopram Oxalate 5 mg Tab PO SCH (09:00)
[2016-08-15] MEDS: Ferrous Sulfate 325 MG TAB PO SCH (09:02)
[2016-08-15] MEDS: Multivitamin Tab PO SCH (09:02)
--- NOTE | 2016-08-15 18:22 | General Progress Note ---
Subjective - Review of Systems Service Date: 08/15/16 Subjective: Patient was resting comfortably denied any complaints no reported concern per nursing staff Objective - Results Result Diagrams: 08/03/16 17:35 08/03/16 17:35 Recent Labs: Laboratory Last Values WBC 9.5 Th/cmm (4.8-10.8) 08/03/16 17:35 RBC 4.60 Mil/cmm (3.80-5.80) 08/03/16 17:35 Hgb 13.1 gm/dL (12.6-17.4) 08/03/16 17:35 Hct 40.5 % (39.0-49.0) 08/03/16 17:35 MCV 87.9 fl (80-99) 08/03/16 17:35 MCH 28.5 pg (27.0-31.0) 08/03/16 17:35 MCHC Differential 32.4 pg (28.0-36.0) 08/03/16 17:35 RDW 13.2 % (11.5-20.0) 08/03/16 17:35 Plt Count 222 Th/cmm (150-400) 08/03/16 17:35 MPV 9.3 fl 08/03/16 17:35 Neutrophils % 59.0 % (40.0-80.0) 08/03/16 17:35 Lymphocytes % 32.5 % (20.0-50.0) 08/03/16 17:35 Monocytes % 6.8 % (2.0-10.0) 08/03/16 17:35 Eosinophils % 1.4 % (0.0-5.0) 08/03/16 17:35 Basophils % 0.3 % (0.0-2.0) 08/03/16 17:35 Sodium 145 mEq/L (136-145) 08/03/16 17:35 Potassium 3.8 mEq/L (3.5-5.1) 08/03/16 17:35 Chloride 106 mEq/L (98-107) 08/03/16 17:35 Carbon Dioxide 24.7 mEq/L (21.0-31.0) 08/03/16 17:35 Anion Gap 18.1 (7.0-16.0) H 08/03/16 17:35 BUN 21 mg/dL (7-25) 08/03/16 17:35 Creatinine 1.1 mg/dL (0.7-1.3) 08/03/16 17:35 Est GFR ( Amer) > 60.0 ml/min (>90) 08/03/16 17:35 Est GFR (Non-Af Amer) > 60.0 ml/min 08/03/16 17:35 BUN/Creatinine Ratio 19.1 08/03/16 17:35 Glucose 129 mg/dL (70-105) H 08/03/16 17:35 POC Glucose 191 MG/DL (70 - 105) H 08/15/16 17:31 Calcium 9.3 mg/dL (8.6-10.3) 08/03/16 17:35 Total Bilirubin 0.3 mg/dL (0.3-1.0) 08/03/16 17:35 AST 10 U/L (13-39) L 08/03/16 17:35 ALT 10 U/L (7-52) 08/03/16 17:35 Alkaline Phosphatase 47 U/L (34-104) 08/03/16 17:35 Total Protein 6.7 gm/dL (6.0-8.3) 08/03/16 17:35 Albumin 4.0 gm/dL (4.2-5.5) L 08/03/16 17:35 Globulin 2.7 gm/dL 08/03/16 17:35 Albumin/Globulin Ratio 1.5 (1.0-1.8) 08/03/16 17:35 Triglycerides 114 mg/dL (<150) 08/03/16 17:35 Cholesterol 142 mg/dL (<200) 08/03/16 17:35 LDL Cholesterol Direct 81 mg/dL (75-193) 08/03/16 17:35 HDL Cholesterol 46 mg/dL (23-92) 08/03/16 17:35 TSH 0.99 uIU/ml (0.34-5.60) 08/03/16 17:35 Urine Source CLEAN C 08/03/16 17:40 Urine Color YELLOW 08/03/16 17:40 Urine Clarity CLEAR (CLEAR) 08/03/16 17:40 Urine pH 5.5 08/03/16 17:40 Ur Specific [place] 1.025 (1.005-1.030) 08/03/16 17:40 Urine Protein 30 mg/dL (NEGATIVE) H 08/03/16 17:40 Urine Glucose (UA) NEGATIVE mg/dL (NEGATIVE) 08/03/16 17:40 Urine Ketones 15 mg/dL (NEGATIVE) H 08/03/16 17:40 Urine Blood SMALL (NEGATIVE) H 08/03/16 17:40 Urine Nitrate NEGATIVE (NEGATIVE) 08/03/16 17:40 Urine Bilirubin NEGATIVE (NEGATIVE) 08/03/16 17:40 Urine Urobilinogen 0.2 E.U./dL (0.2 - 1.0) 08/03/16 17:40 Ur Leukocyte Esterase NEGATIVE (NEGATIVE) 08/03/16 17:40 Urine RBC 2-5 /hpf (0-5) H 08/03/16 17:40 Urine WBC NONE SEEN /hpf (0-5) 08/03/16 17:40 Ur Epithelial Cells NONE SEEN /lpf (FEW) 08/03/16 17:40 Urine Bacteria NONE SEEN /hpf (NONE SEEN) 08/03/16 17:40 Salicylates 25.0 mg/L (30.0-100.0) L 08/03/16 17:35 Urine Opiates Screen NEGATIVE (NEGATIVE) 08/03/16 17:40 Urine Methadone Screen NEGATIVE (NEGATIVE) 08/03/16 17:40 Acetaminophen < 10.0 ug/mL (10.0-30.0) L 08/03/16 17:35 Ur Barbiturates Screen NEGATIVE (NEGATIVE) 08/03/16 17:40 Valproic Acid 34.3 ug/mL (50.0-100.0) L 08/11/16 08:00 Ur Tricyclics Screen NEGATIVE (NEGATIVE) 08/03/16 17:40 Ur Phencyclidine Scrn NEGATIVE (NEGATIVE) 08/03/16 17:40 Amphetamines Screen NEGATIVE (NEGATIVE) 08/03/16 17:40 U Methamphetamines Scrn NEGATIVE (NEGATIVE) 08/03/16 17:40 U Benzodiazepines Scrn NEGATIVE (NEGATIVE) 08/03/16 17:40 U Cocaine Metab Screen NEGATIVE (NEGATIVE) 08/03/16 17:40 U Cannabinoids Screen NEGATIVE (NEGATIVE) 08/03/16 17:40 Ethyl Alcohol < 10 mg/dL (0-10) 08/03/16 17:35 RPR NONREACTIVE (NONREACTIVE) 08/03/16 17:35 - Physical Exam Vitals and I&O: Vital Signs Temp 98.3 F 08/15/16 14:00 Pulse 81 08/15/16 14:00 Resp 20 08/15/16 14:00 BP 131/59 08/15/16 14:00 Pulse Ox 98 08/15/16 14:00 Intake & Output 08/14/16 08/15/16 08/15/16 18:59 06:59 18:59 Intake Total 843 365 2094 Balance 888 979 4136 Intake: Oral 205 859 5888 Other: # Voids 3 1 4 # Bowel Movements 1 0 1 Active Medications: Current Medications Acetaminophen (Tylenol) 650 mg PO Q4HR PRN PRN Reason: Mild Pain / Temp above 100 Stop: 10/02/16 21:51 Al Hydrox/Mg Hydrox/Simethicone (Maalox) 30 ml PO Q4HR PRN PRN Reason: GI DISTRESS Stop: 10/02/16 21:51 Atorvastatin Calcium (Lipitor) 10 mg PO HS [facility] PRN Reason: Protocol Stop: 10/03/16 20:59 Last Admin: 08/14/16 20:23 Dose: 10 mg Clopidogrel Bisulfate (Plavix) 75 mg PO DAILY [facility] Stop: 10/03/16 08:59 Last Admin: 08/15/16 09:03 Dose: Not Given Divalproex Sodium (Depakote Sprinkle) 375 mg PO 0800 [facility] PRN Reason: Protocol Stop: 10/03/16 07:59 Last Admin: 08/15/16 09:01 Dose: Not Given Divalproex Sodium (Depakote Sprinkle) 500 mg PO BID@1200,1600 [facility] PRN Reason: Protocol Stop: 10/03/16 11:59 Last Admin: 08/15/16 17:52 Dose: Not Given Docusate Sodium (Colace) 100 mg PO BID [facility] Stop: 10/03/16 08:59 Last Admin: 08/15/16 17:52 Dose: Not Given Donepezil HCl (Aricept) 5 mg PO HS [facility] Stop: 10/03/16 20:59 Last Admin: 08/14/16 20:23 Dose: 5 mg Escitalopram Oxalate (Lexapro) 5 mg PO DAILY [facility] PRN Reason: Protocol Stop: 10/10/16 08:59 Last Admin: 08/15/16 09:00 Dose: Not Given Famotidine (Pepcid) 20 mg PO DAILY [facility] Stop: 10/03/16 08:59 Last Admin: 08/15/16 09:01 Dose: Not Given Ferrous Sulfate (Iron) 325 mg PO DAILY [facility] Stop: 10/03/16 08:59 Last Admin: 08/15/16 09:02 Dose: Not Given Insulin Aspart (Novolog Insulin Sliding Scale) 0 units SUBQ ACHS [facility] PRN Reason: Protocol Stop: 10/03/16 20:59 Last Admin: 08/15/16 17:52 Dose: Not Given Lorazepam (Ativan) 0.5 mg PO Q6HR PRN; Protocol PRN Reason: Anxiety Stop: 10/10/16 15:07 Magnesium Hydroxide (Milk Of Magnesia) 30 ml PO HS PRN PRN Reason: Constipation Memantine (Namenda) 10 mg PO BID [facility] Stop: 10/03/16 08:59 Last Admin: 08/15/16 17:52 Dose: Not Given Metformin HCl (Glucophage) 500 mg PO BIDWM [facility] Stop: 10/05/16 17:59 Last Admin: 08/15/16 17:52 Dose: Not Given Multivitamins/Vitamin C (Theragran) 1 tab PO DAILY [facility] Stop: 10/03/16 08:59 Last Admin: 08/15/16 09:02 Dose: Not Given Quetiapine Fumarate (Seroquel) 12.5 mg PO DAILY [facility] PRN Reason: Protocol Stop: 10/03/16 08:59 Last Admin: 08/15/16 09:02 Dose: Not Given Quetiapine Fumarate 100 mg/ (Quetiapine Fumarate 25 mg) 125 mg PO HS [facility] Stop: 10/12/16 20:59 Last Admin: 08/14/16 20:23 Dose: 125 mg Zolpidem Tartrate (Ambien) 5 mg PO HS PRN PRN Reason: Insomnia Stop: 10/10/16 15:05 Cardiovascular: Regular rate Lungs: Clear to auscultation Assessment/Plan - Assessment Assessment: Diabetes Mellitus Hyperlipidemia GERD Alzheimer's dementia Psych disorder - Plan Plan: patient doing fine Continue current treatment Psych management per Psychiatrist Nutritional Asmnt/Malnutr-PDOC - Dietary Evaluation Malnutrition Findings (Please click <Entered> for more info): Nutritional Asmnt/Malnutrition Start: 08/05/16 15: 08 Text: Status: Complete Freq: Document 08/05/16 15:08 DYLAN (Rec: 08/05/16 15:33 [email or web address] [id number]) Nutritional Asmnt/Malnutrition Patient General Information Nutritional Screening Moderate Risk Screening Diagnosis Reason for visit: acute psychosis Pertinent Medical Hx/Surgical Hx DM, hyperlipidemia, seizure disorders, psych disorder, Alzheimer's dementia Subjective Information 65 year old male from SNF. Pt was in isolation room due to aggressive behavior during visit. No meal activity recorded on EMR. Spoke to nursing staff, nursing staff stated pt is confused and may be aggressive at times, " sometimes eat and sometimes does not depending on mood." Current Diet Order/ Nutrition Support Regular, CALLY, CCHO Pertinent Medications Maalox, Lipitor, Colace, Pepcid, Iron, Novolog, MOM, Glucophage, Theragran, Seroquel Pertinent Labs 08/03: glucose 129H Nutritional Hx/Data Height 1.8 m Height (Calculated Centimeters) 180.3 Current Weight (lbs) 79.832 kg Weight (Calculated Kilograms) 79.8 Weight (Calculated Grams) 14402.3 [place] Body Weight 172 Weight Status Approriate GI Symptoms Food Allergies No Usual diet at home [place] [facility]: regular, CALLY, CCHO Skin Integrity/Comment: Jamil Husain. Skin intact. Estimated Nutritional Goals BEE in Kcals: Using Current wt Calories/Kcals/Kg CBW 176lb/80kg Kcals Calculated 2000-2400kcal (25-30kcal/kg) Protein: Using Current wt Protein Calculated 80g (1g/kg) Fluid: ml 2000-2400ml (1ml/kcal) Nutritional Problem 1. Problem Problem Iandequate carbohydrate intake related to Etiology estimated nutritional needs aeb Signs/Symptoms: current diet order [id number] does not provide to meet minimum CCHO needs. Intervention/Recommendation Comments 1. Recommend [id number] to promote glycemic control while meeting minimal carb needs. 2. Nursing staff to record percent of intake, no meal activities recorded since admission, day 2. Expected Outcomes/Goals Expected Outcomes/Goals 1. PO intake to meet at least 75% of estimated nutritional needs.
[2016-08-15] MEDS: Atorvastatin Calcium 10 MG TAB PO SCH (20:23)
--- NOTE | 2016-08-16 06:11 | Progress Notes ---
DATE: 08/15/[address] Bowers. Case was discussed with staff of the patient. The patient continues to be depressed, isolating in his room. He reports having suicidal ideation. No specific plan. He is able to contract for safety while in the hospital. He is refusing his medication and continues to refuse and may need to leave that decision up to Dr. Bowers. He continues to have episodes of agitation, irritability, is hard to adjust his medications since he has not taken that and we will continue to work with the patient in group therapy, milieu therapy, adjust the medication as needed. JOB# [id number]
[2016-08-16] MEDS: INSULIN ASPART SLIDING SCALE 100 UNITS/ML UNIT SUBQ SCH ×4 (06:36→21:22)
[2016-08-16] MEDS: Multivitamin Tab PO SCH (08:17)
[2016-08-16] MEDS: Escitalopram Oxalate 5 mg Tab PO SCH (08:18)
[2016-08-16] MEDS: Ferrous Sulfate 325 MG TAB PO SCH (08:18)
[2016-08-16] MEDS: Atorvastatin Calcium 10 MG TAB PO SCH (21:10)
--- NOTE | 2016-08-17 04:48 | Progress Notes ---
DATE: 08/16/2016 SUBJECTIVE: The patient seen, chart reviewed, discussed with staff. The patient remains confused, disoriented, rambling, continued periods of agitation, irritability, difficult to redirect, at times refusing medications. The patient is not really speaking to me today and just walks away, currently on higher dosages of Seroquel, seems to be tolerating fairly well, no side effects, no oversedation noted; however, his behaviors do persist. No EPS. No oversedation noted, requiring a lot of prompting for ADLs and prompting to eat and confused about where his room is. ASSESSMENT: The patient remains symptomatic, still aggressive, impulsive. PLAN: Increase Seroquel, monitor closely. The patient remains impulsive, unpredictable, still aggressive. JOB# [id number]
[2016-08-17] MEDS: INSULIN ASPART SLIDING SCALE 100 UNITS/ML UNIT SUBQ SCH ×4 (06:34→20:06)
[2016-08-17] MEDS: Ferrous Sulfate 325 MG TAB PO SCH (09:10)
[2016-08-17] MEDS: Escitalopram Oxalate 5 mg Tab PO SCH (09:10)
[2016-08-17] MEDS: Multivitamin Tab PO SCH (09:58)
[2016-08-17] MEDS ORDERED: Haloperidol Lactate 5 mg/mL 1mL Vial IM ONE (13:07)
[2016-08-17] MEDS ORDERED: Haloperidol Lactate 5 mg/mL 1mL Vial ONE (13:12)
[2016-08-17] MEDS: Atorvastatin Calcium 10 MG TAB PO SCH (20:07)
[2016-08-18] MEDS: INSULIN ASPART SLIDING SCALE 100 UNITS/ML UNIT SUBQ SCH ×4 (06:37→20:38)
[2016-08-18] MEDS ORDERED: Haloperidol Lactate 5 mg/mL 1mL Vial IM ONE (07:23)
[2016-08-18] MEDS ORDERED: Haloperidol Lactate 5 mg/mL 1mL Vial ONE (07:24)
[2016-08-18] MEDS: Escitalopram Oxalate 5 mg Tab PO SCH (10:05)
[2016-08-18] MEDS: Ferrous Sulfate 325 MG TAB PO SCH (10:05)
[2016-08-18] MEDS: Multivitamin Tab PO SCH (10:05)
--- NOTE | 2016-08-18 18:01 | Progress Notes ---
DATE: 08/17/2016 SUBJECTIVE: The patient seen, chart reviewed, discussed with staff. The patient is currently in the hospital. He is confused, disorganized, disoriented, symptomatic, refusing medications, still get agitated, aggressive towards staff, still symptomatic, still with psychotic agitation, impulsive, unpredictable. Staff is concerned because he is very erratic with his medications. Sometime he takes it, sometimes he does not. The patient noted to be requiring a lot of redirection and prompting for ADLs, prompting to eat. ASSESSMENT: The patient is still requiring emergency medications, impulsive, unpredictable, aggressive, agitated. PLAN: Continue to monitor. Continue to encourage better med compliance. I may have to file a [place] petition if the patient continues to refuse and act out. [facility]# [id number]
[2016-08-18] MEDS: Atorvastatin Calcium 10 MG TAB PO SCH (20:37)
--- NOTE | 2016-08-19 01:06 | Progress Notes ---
DATE: 08/18/2016 SUBJECTIVE: The patient was seen, chart reviewed, and discussed with staff. Remains aggressive, impulsive, unpredictable, violent, still lashing out, still requiring emergency medications, not safe for a lower level of care, refusing medications, requiring intramuscular injection of Haldol, wandering, disoriented, does not know what is going on, needing a lot of redirection and prompting. ASSESSMENT: The patient remains symptomatic, aggressive, violent, and refusing treatment. PLAN: We will initiate a [facility]e petition. A 72-hour hold. We will encourage med compliance. [facility]# [id number]
[2016-08-19] MEDS: INSULIN ASPART SLIDING SCALE 100 UNITS/ML UNIT SUBQ SCH ×4 (06:35→20:05)
[2016-08-19] MEDS: Escitalopram Oxalate 5 mg Tab PO SCH (10:54)
[2016-08-19] MEDS: Multivitamin Tab PO SCH (10:55)
[2016-08-19] MEDS: Ferrous Sulfate 325 MG TAB PO SCH (10:55)
[2016-08-19] MEDS ORDERED: Haloperidol Lactate 5 mg/mL 1mL Vial ONE (13:21)
[2016-08-19] MEDS ORDERED: Haloperidol Lactate 5 mg/mL 1mL Vial IM ONE (13:22)
[2016-08-19] MEDS: Atorvastatin Calcium 10 MG TAB PO SCH (20:20)
--- NOTE | 2016-08-20 04:47 | Progress Notes ---
DATE: 08/19/2016 SUBJECTIVE: The patient was seen, chart reviewed, and discussed with staff. The patient remains hostile, agitated, aggressive, refusing medications, requiring Haldol intramuscular today for hitting staff, hitting his roommates, very impulsive, unpredictable, disorganized, and disoriented. On [id number], the patient sedated because of the injection. ASSESSMENT: The patient remains aggressive, psychotic, hostile with psychotic agitation, hitting staff members, requiring Haldol cocktail today as early as a few hours ago. PLAN: Continue to monitor. Encourage med compliance. A Massive petition hearing is going to be on Tuesday. JOB# [id number]
[2016-08-20] MEDS: INSULIN ASPART SLIDING SCALE 100 UNITS/ML UNIT SUBQ SCH ×4 (06:37→20:55)
[2016-08-20] MEDS: Ferrous Sulfate 325 MG TAB PO SCH (09:37)
[2016-08-20] MEDS: Multivitamin Tab PO SCH (09:37)
[2016-08-20] MEDS: Escitalopram Oxalate 5 mg Tab PO SCH (09:38)
[2016-08-20] MEDS: Atorvastatin Calcium 10 MG TAB PO SCH (20:54)
--- NOTE | 2016-08-21 05:53 | Progress Notes ---
DATE: 08/20/2016 SUBJECTIVE: The patient was seen, chart reviewed, discussed with staff. The patient remains aggressive, agitated, combative, trying to strike at staff, requiring emergency medications daily, refusing medication, refusing treatment, confused, disoriented, gravely disabled, and we have no where for him to go right now. The patient is wondering and disoriented. ASSESSMENT: The patient remains aggressive, combative, still requiring emergency medications on a near-daily basis, refusing all treatment. PLAN: Currently pending a Riese petition. We will continue to monitor and followup. Riese hearing will be on Tuesday. JOB# [id number]
[2016-08-21] MEDS: INSULIN ASPART SLIDING SCALE 100 UNITS/ML UNIT SUBQ SCH ×4 (07:07→20:37)
[2016-08-21] MEDS: Multivitamin Tab PO SCH (08:50)
[2016-08-21] MEDS: Ferrous Sulfate 325 MG TAB PO SCH (08:51)
[2016-08-21] MEDS: Escitalopram Oxalate 5 mg Tab PO SCH (08:51)
--- NOTE | 2016-08-21 19:49 | Progress Notes ---
DATE: 08/21/2016 SUBJECTIVE: The patient was seen and evaluated. The patient's chart reviewed. Overnight staff reported the patient continues to be very impulsive, aggressive, and hitting staff members and awaiting to be Riese on Tuesday. MENTAL STATUS EXAMINATION: On [id number] evaluation, the patient was observed to be easily irritable, agitated, responding to internal stimuli. On examination, refusing medications, had recurrent multiple poor insight, judgment, and impulse control. ASSESSMENT AND PLAN: The patient is a 65-year-old male who presents still aggressive and requiring emergent medications, unable to formulate a safe plan outside the structured environment as he continues to be aggressive and requiring to be Riese. [facility]# [id number]
[2016-08-21] MEDS: Atorvastatin Calcium 10 MG TAB PO SCH (20:36)
[2016-08-22] MEDS: Multivitamin Tab PO SCH (08:54)
[2016-08-22] MEDS: Escitalopram Oxalate 5 mg Tab PO SCH (08:55)
[2016-08-22] MEDS: INSULIN ASPART SLIDING SCALE 100 UNITS/ML UNIT SUBQ SCH ×4 (08:55→20:35)
[2016-08-22] MEDS: Ferrous Sulfate 325 MG TAB PO SCH (08:56)
[2016-08-22] MEDS: Atorvastatin Calcium 10 MG TAB PO SCH (20:27)
--- NOTE | 2016-08-23 00:59 | Progress Notes ---
DATE: 08/22/2016 SUBJECTIVE: The patient was seen and evaluated. The patient's chart reviewed. Overnight staff reported that the patient continues to need a lot of redirection as he has been very easily irritable and trying to hit others. OBJECTIVE: Today on [id number] evaluation, the patient is still observed to be easily disorganized, irritable, and needing a lot of redirection. ASSESSMENT AND PLAN: A 65-year-old male still presents easily disorganized, irritable, agitated, resulting in aggressive behavior. We will continue with primary psychiatrist's treatment plan and goals, which include Seroquel, Celexa, Lexapro, Ativan as needed. He is currently refusing medications and awaiting Riese. JOB# [id number]
[2016-08-23] MEDS: INSULIN ASPART SLIDING SCALE 100 UNITS/ML UNIT SUBQ SCH ×4 (06:40→20:57)
[2016-08-23] MEDS: Escitalopram Oxalate 5 mg Tab PO SCH (10:22)
[2016-08-23] MEDS: Ferrous Sulfate 325 MG TAB PO SCH (10:23)
[2016-08-23] MEDS: Multivitamin Tab PO SCH (10:23)
[2016-08-23] MEDS: Atorvastatin Calcium 10 MG TAB PO SCH (20:17)
--- NOTE | 2016-08-23 21:07 | Progress Notes ---
DATE: 08/23/2016 SUBJECTIVE: The patient was seen, chart reviewed, and discussed with staff. The patient remains symptomatic, still bizarre, states he is being admitted for the first time today. When I asked him why, he does not want to take his medications with the Lebanese translator interpreter present. He states,"__none of your___ business." He is talking nonsensical. This Lebanese translator interpreter states that he is pretty nonsensical, not making much sense. He all of a sudden gives _ phone to me____ and walks away. Staff noting he remains aggressive, refusing treatment, refusing the medications. Currently, we are pending a Riese hearing. ASSESSMENT: The patient remains symptomatic, bizarre, aggressive, agitated, and refusing treatment. PLAN: We will continue to monitor a Riese hearing, it is today. We will continue to monitor. The patient is not safe for discharge. JOB# [id number] FREDERICK
[2016-08-24] MEDS: INSULIN ASPART SLIDING SCALE 100 UNITS/ML UNIT SUBQ SCH ×4 (06:36→20:32)
[2016-08-24] MEDS: Multivitamin Tab PO SCH (08:32)
[2016-08-24] MEDS: Escitalopram Oxalate 5 mg Tab PO SCH (08:33)
[2016-08-24] MEDS: Ferrous Sulfate 325 MG TAB PO SCH (08:33)
[2016-08-24] MEDS: Atorvastatin Calcium 10 MG TAB PO SCH (20:27)
--- NOTE | 2016-08-25 01:57 | Progress Notes ---
DATE: 08/24/2016 SUBJECTIVE: The patient was seen, chart reviewed, and discussed with staff. The charge recommended retraction of the Riese petition because the patient was taken 9/10 doses of his medications over the past few days, although . The patient remains symptomatic, impulsive, refusing interview, irritable, disorganized, does not really understand what is going on, intermittently refusing medications. Staff has to really prompt him. I did speak with both sons, they are very concerned because the patient is still violent in and out of facilities. Sleeping fairly well, eating with prompting. ASSESSMENT: The patient remains symptomatic, disorganized, impulsive, unpredictable, history of violence, aggressive behaviors. PLAN: We will continue to monitor given the severity of the patient's current symptoms. He remains symptomatic and not safe for a lower level of care at this time. Given recent dose increase of Seroquel, we will continue at current dose. JOB# [id number]
[2016-08-25] MEDS: INSULIN ASPART SLIDING SCALE 100 UNITS/ML UNIT SUBQ SCH ×4 (06:42→21:40)
[2016-08-25] MEDS: Escitalopram Oxalate 5 mg Tab PO SCH (09:07)
[2016-08-25] MEDS: Multivitamin Tab PO SCH (09:07)
[2016-08-25] MEDS: Ferrous Sulfate 325 MG TAB PO SCH (09:10)
--- NOTE | 2016-08-25 10:34 | General Progress Note ---
Subjective - Review of Systems Service Date: 08/25/16 Subjective: Patient doing fine denied any complaints no reported concern per nursing staff Objective - Results Result Diagrams: 08/03/16 17:35 08/03/16 17:35 Recent Labs: Laboratory Last Values WBC 9.5 Th/cmm (4.8-10.8) 08/03/16 17:35 RBC 4.60 Mil/cmm (3.80-5.80) 08/03/16 17:35 Hgb 13.1 gm/dL (12.6-17.4) 08/03/16 17:35 Hct 40.5 % (39.0-49.0) 08/03/16 17:35 MCV 87.9 fl (80-99) 08/03/16 17:35 MCH 28.5 pg (27.0-31.0) 08/03/16 17:35 MCHC Differential 32.4 pg (28.0-36.0) 08/03/16 17:35 RDW 13.2 % (11.5-20.0) 08/03/16 17:35 Plt Count 222 Th/cmm (150-400) 08/03/16 17:35 MPV 9.3 fl 08/03/16 17:35 Neutrophils % 59.0 % (40.0-80.0) 08/03/16 17:35 Lymphocytes % 32.5 % (20.0-50.0) 08/03/16 17:35 Monocytes % 6.8 % (2.0-10.0) 08/03/16 17:35 Eosinophils % 1.4 % (0.0-5.0) 08/03/16 17:35 Basophils % 0.3 % (0.0-2.0) 08/03/16 17:35 Sodium 145 mEq/L (136-145) 08/03/16 17:35 Potassium 3.8 mEq/L (3.5-5.1) 08/03/16 17:35 Chloride 106 mEq/L (98-107) 08/03/16 17:35 Carbon Dioxide 24.7 mEq/L (21.0-31.0) 08/03/16 17:35 Anion Gap 18.1 (7.0-16.0) H 08/03/16 17:35 BUN 21 mg/dL (7-25) 08/03/16 17:35 Creatinine 1.1 mg/dL (0.7-1.3) 08/03/16 17:35 Est GFR ( Amer) > 60.0 ml/min (>90) 08/03/16 17:35 Est GFR (Non-Af Amer) > 60.0 ml/min 08/03/16 17:35 BUN/Creatinine Ratio 19.1 08/03/16 17:35 Glucose 129 mg/dL (70-105) H 08/03/16 17:35 POC Glucose 99 MG/DL (70 - 105) 08/25/16 05:59 Calcium 9.3 mg/dL (8.6-10.3) 08/03/16 17:35 Total Bilirubin 0.3 mg/dL (0.3-1.0) 08/03/16 17:35 AST 10 U/L (13-39) L 08/03/16 17:35 ALT 10 U/L (7-52) 08/03/16 17:35 Alkaline Phosphatase 47 U/L (34-104) 08/03/16 17:35 Total Protein 6.7 gm/dL (6.0-8.3) 08/03/16 17:35 Albumin 4.0 gm/dL (4.2-5.5) L 08/03/16 17:35 Globulin 2.7 gm/dL 08/03/16 17:35 Albumin/Globulin Ratio 1.5 (1.0-1.8) 08/03/16 17:35 Triglycerides 114 mg/dL (<150) 08/03/16 17:35 Cholesterol 142 mg/dL (<200) 08/03/16 17:35 LDL Cholesterol Direct 81 mg/dL (75-193) 08/03/16 17:35 HDL Cholesterol 46 mg/dL (23-92) 08/03/16 17:35 TSH 0.99 uIU/ml (0.34-5.60) 08/03/16 17:35 Urine Source CLEAN C 08/03/16 17:40 Urine Color YELLOW 08/03/16 17:40 Urine Clarity CLEAR (CLEAR) 08/03/16 17:40 Urine pH 5.5 08/03/16 17:40 Ur Specific [place] 1.025 (1.005-1.030) 08/03/16 17:40 Urine Protein 30 mg/dL (NEGATIVE) H 08/03/16 17:40 Urine Glucose (UA) NEGATIVE mg/dL (NEGATIVE) 08/03/16 17:40 Urine Ketones 15 mg/dL (NEGATIVE) H 08/03/16 17:40 Urine Blood SMALL (NEGATIVE) H 08/03/16 17:40 Urine Nitrate NEGATIVE (NEGATIVE) 08/03/16 17:40 Urine Bilirubin NEGATIVE (NEGATIVE) 08/03/16 17:40 Urine Urobilinogen 0.2 E.U./dL (0.2 - 1.0) 08/03/16 17:40 Ur Leukocyte Esterase NEGATIVE (NEGATIVE) 08/03/16 17:40 Urine RBC 2-5 /hpf (0-5) H 08/03/16 17:40 Urine WBC NONE SEEN /hpf (0-5) 08/03/16 17:40 Ur Epithelial Cells NONE SEEN /lpf (FEW) 08/03/16 17:40 Urine Bacteria NONE SEEN /hpf (NONE SEEN) 08/03/16 17:40 Salicylates 25.0 mg/L (30.0-100.0) L 08/03/16 17:35 Urine Opiates Screen NEGATIVE (NEGATIVE) 08/03/16 17:40 Urine Methadone Screen NEGATIVE (NEGATIVE) 08/03/16 17:40 Acetaminophen < 10.0 ug/mL (10.0-30.0) L 08/03/16 17:35 Ur Barbiturates Screen NEGATIVE (NEGATIVE) 08/03/16 17:40 Valproic Acid 34.3 ug/mL (50.0-100.0) L 08/11/16 08:00 Ur Tricyclics Screen NEGATIVE (NEGATIVE) 08/03/16 17:40 Ur Phencyclidine Scrn NEGATIVE (NEGATIVE) 08/03/16 17:40 Amphetamines Screen NEGATIVE (NEGATIVE) 08/03/16 17:40 U Methamphetamines Scrn NEGATIVE (NEGATIVE) 08/03/16 17:40 U Benzodiazepines Scrn NEGATIVE (NEGATIVE) 08/03/16 17:40 U Cocaine Metab Screen NEGATIVE (NEGATIVE) 08/03/16 17:40 U Cannabinoids Screen NEGATIVE (NEGATIVE) 08/03/16 17:40 Ethyl Alcohol < 10 mg/dL (0-10) 08/03/16 17:35 RPR NONREACTIVE (NONREACTIVE) 08/03/16 17:35 - Physical Exam Vitals and I&O: Vital Signs Temp 98.0 F 08/25/16 05:14 Pulse 76 08/25/16 05:14 Resp 20 08/25/16 05:14 BP 109/63 08/25/16 05:14 Pulse Ox 99 08/25/16 05:14 Intake & Output 08/24/16 08/25/16 08/25/16 18:59 06:59 18:59 Intake Total 900 Balance 900 Intake: Oral 900 Other: # Voids 2 # Bowel Movements 0 Active Medications: Current Medications Acetaminophen (Tylenol) 650 mg PO Q4HR PRN PRN Reason: Mild Pain / Temp above 100 Stop: 10/02/16 21:51 Al Hydrox/Mg Hydrox/Simethicone (Maalox) 30 ml PO Q4HR PRN PRN Reason: GI DISTRESS Stop: 10/02/16 21:51 Atorvastatin Calcium (Lipitor) 10 mg PO HS STEPHANIE PRN Reason: Protocol Stop: 10/03/16 20:59 Last Admin: 08/24/16 20:27 Dose: 10 mg Clopidogrel Bisulfate (Plavix) 75 mg PO DAILY [facility] Stop: 10/03/16 08:59 Last Admin: 08/25/16 09:07 Dose: 75 mg Divalproex Sodium (Depakote Sprinkle) 375 mg PO 0800 STEPHANIE PRN Reason: Protocol Stop: 10/03/16 07:59 Last Admin: 08/25/16 09:10 Dose: 375 mg Divalproex Sodium (Depakote Sprinkle) 500 mg PO BID@1200,1600 STEPHANIE PRN Reason: Protocol Stop: 10/03/16 11:59 Last Admin: 08/24/16 17:22 Dose: Not Given Docusate Sodium (Colace) 100 mg PO BID STEPHANIE Stop: 10/03/16 08:59 Last Admin: 08/25/16 09:10 Dose: 100 mg Donepezil HCl (Aricept) 5 mg PO HS STEPHANIE Stop: 10/03/16 20:59 Last Admin: 08/24/16 20:27 Dose: 5 mg Escitalopram Oxalate (Lexapro) 5 mg PO DAILY STEPHANIE PRN Reason: Protocol Stop: 10/10/16 08:59 Last Admin: 08/25/16 09:07 Dose: 5 mg Famotidine (Pepcid) 20 mg PO DAILY STEPHANIE Stop: 10/03/16 08:59 Last Admin: 08/25/16 09:07 Dose: 20 mg Ferrous Sulfate (Iron) 325 mg PO DAILY STEPHANIE Stop: 10/03/16 08:59 Last Admin: 08/25/16 09:10 Dose: 325 mg Insulin Aspart (Novolog Insulin Sliding Scale) 0 units SUBQ ACHS STEPHANIE PRN Reason: Protocol Stop: 10/03/16 20:59 Last Admin: 08/25/16 06:42 Dose: Not Given Lorazepam (Ativan) 0.5 mg PO Q6HR PRN; Protocol PRN Reason: Anxiety Stop: 10/10/16 15:07 Last Admin: 08/20/16 07:42 Dose: 0.5 mg Magnesium Hydroxide (Milk Of Magnesia) 30 ml PO HS PRN PRN Reason: Constipation Memantine (Namenda) 10 mg PO BID STEPHANIE Stop: 10/03/16 08:59 Last Admin: 08/25/16 09:07 Dose: 10 mg Metformin HCl (Glucophage) 500 mg PO BIDWM STEPHANIE Stop: 10/05/16 17:59 Last Admin: 08/25/16 09:11 Dose: 500 mg Multivitamins/Vitamin C (Theragran) 1 tab PO DAILY STEPHANIE Stop: 10/03/16 08:59 Last Admin: 08/25/16 09:07 Dose: 1 tab Quetiapine Fumarate (Seroquel) 12.5 mg PO DAILY STEPHANIE PRN Reason: Protocol Stop: 10/03/16 08:59 Last Admin: 08/25/16 09:00 Dose: 12.5 mg Quetiapine Fumarate (Seroquel) 200 mg PO HS STEPHANIE Stop: 10/22/16 14:14 Last Admin: 08/24/16 20:27 Dose: 200 mg Zolpidem Tartrate (Ambien) 5 mg PO HS PRN PRN Reason: Insomnia Stop: 10/10/16 15:05 Cardiovascular: Regular rate Lungs: Clear to auscultation Abdomen: Soft Assessment/Plan - Assessment Assessment: Diabetes Mellitus Hyperlipidemia GERD Alzheimer's dementia Psych disorder - Plan Plan: patient doing fine Continue current treatment Psych management per Psychiatrist Nutritional Asmnt/Malnutr-PDOC - Dietary Evaluation Malnutrition Findings (Please click <Entered> for more info): Nutritional Asmnt/Malnutrition Start: 08/05/16 15: 08 Text: Status: Complete Freq: Document 08/05/16 15:08 DYLAN (Rec: 08/05/16 15:33 [email or web address]) Nutritional Asmnt/Malnutrition Patient General Information Nutritional Screening Moderate Risk Screening Diagnosis Reason for visit: acute psychosis Pertinent Medical Hx/Surgical Hx DM, hyperlipidemia, seizure disorders, psych disorder, Alzheimer's dementia Subjective Information 65 year old male from SNF. Pt was in isolation room due to aggressive behavior during visit. No meal activity recorded on EMR. Spoke to nursing staff, nursing staff stated pt is confused and may be aggressive at times, " sometimes eat and sometimes does not depending on mood." Current Diet Order/ Nutrition Support Regular, CALLY, CCHO Pertinent Medications Maalox, Lipitor, Colace, Pepcid, Iron, Novolog, MOM, Glucophage, Theragran, Seroquel Pertinent Labs 08/03: glucose 129H Nutritional Hx/Data Height 1.8 m Height (Calculated Centimeters) 180.3 Current Weight (lbs) 79.832 kg Weight (Calculated Kilograms) 79.8 Weight (Calculated Grams) 05140.3 [place] Body Weight 172 Weight Status Approriate GI Symptoms Food Allergies No Usual diet at home [facility]: regular, CALLY, CCHO Skin Integrity/Comment: Jamil Husain. Skin intact. Estimated Nutritional Goals BEE in Kcals: Using Current wt Calories/Kcals/Kg CBW 176lb/80kg Kcals Calculated 2000-2400kcal (25-30kcal/kg) Protein: Using Current wt Protein Calculated 80g (1g/kg) Fluid: ml 2000-2400ml (1ml/kcal) Nutritional Problem 1. Problem Problem Iandequate carbohydrate intake related to Etiology estimated nutritional needs aeb Signs/Symptoms: current diet order [id number] does not provide to meet minimum CCHO needs. Intervention/Recommendation Comments 1. Recommend [id number] to promote glycemic control while meeting minimal carb needs. 2. Nursing staff to record percent of intake, no meal activities recorded since admission, day 2. Expected Outcomes/Goals Expected Outcomes/Goals 1. PO intake to meet at least 75% of estimated nutritional needs.
--- NOTE | 2016-08-25 21:15 | Progress Notes ---
DATE: 08/25/2016 SUBJECTIVE: The patient was seen, chart reviewed, and discussed with staff. The patient continues to refuse medications and refused this medication yesterday, still agitated, aggressive, and disoriented. I did ask court to come back. I am currently awaiting for them to come back as the patient continues to have poor medication compliance. He is wandering, refusing interview, not really interactive, stating to take his medication, but then he does not take it. Eating with prompting. Sleeping fairly well. ADLs with some prompting, but poor ADLs in general. ASSESSMENT: The patient remains combative, agitated, and confused. He is still refusing treatments. PLAN: We will ask the court to come back for a second Riese hearing to try to see if we can treat the patient against his will and start working on his dispo planning thereafter. JOB# [id number]
[2016-08-25] MEDS: Atorvastatin Calcium 10 MG TAB PO SCH (21:40)
[2016-08-26] MEDS: INSULIN ASPART SLIDING SCALE 100 UNITS/ML UNIT SUBQ SCH ×4 (06:32→21:10)
[2016-08-26] MEDS: Multivitamin Tab PO SCH (08:49)
[2016-08-26] MEDS: Ferrous Sulfate 325 MG TAB PO SCH (08:49)
[2016-08-26] MEDS: Escitalopram Oxalate 5 mg Tab PO SCH (08:51)
[2016-08-26] MEDS ORDERED: Magnesium Hydroxide (MOM) 30 mL UDC PO PRN (17:46)
[2016-08-26] MEDS: Atorvastatin Calcium 10 MG TAB PO SCH (21:00)
--- NOTE | 2016-08-27 05:04 | Progress Notes ---
DATE: 08/26/2016 SUBJECTIVE: The patient was seen, chart reviewed, and discussed with staff. The patient continues to remain impulsive, unpredictable, still refusing medications at times. Less aggressive, more redirectable, confused, disoriented, irritable, requiring a lot of redirection and prompting, very poor memory, wandering into other patient's room, intrusive. ASSESSMENT: The patient remains symptomatic. He is tolerant of treatment, better medication compliance, better direction and redirection, but remains impulsive, unpredictable, history of violence. PLAN: We will continue to monitor and titrate medications, increase Seroquel today. Given the severity of the patient's behaviors, he is not safe for discharge. [facility]# [id number]
[2016-08-27] MEDS: INSULIN ASPART SLIDING SCALE 100 UNITS/ML UNIT SUBQ SCH ×4 (06:39→21:01)
--- NOTE | 2016-08-27 07:57 | Progress Notes ---
DATE: 08/27/2016 SUBJECTIVE: The patient was seen, chart reviewed, and discussed with staff. The patient is somewhat more med compliant. Still refusing interview, walking away when I talk to him. He seems to be calming down. No episodes of agitation as of late. Recent dose increase of Seroquel to 250 mg at night. Less impulsive, less unpredictable. Sleeping fairly well and eating with prompting. ADLs with prompting. He is pretty confused. ASSESSMENT: The patient seems to be improving, on exam, more redirectable. We are currently working on placement given that the patient is gravely disabled. He is unable to care for his basic needs at this time. We will coordinate care with social work. The patient remains symptomatic, still unpredictable, but improvement noted. JOB# [id number]
[2016-08-27] MEDS: Escitalopram Oxalate 5 mg Tab PO SCH (11:35)
[2016-08-27] MEDS: Ferrous Sulfate 325 MG TAB PO SCH (11:35)
[2016-08-27] MEDS: Multivitamin Tab PO SCH (11:36)
[2016-08-27] MEDS: Atorvastatin Calcium 10 MG TAB PO SCH (20:27)
[2016-08-28] MEDS: INSULIN ASPART SLIDING SCALE 100 UNITS/ML UNIT SUBQ SCH ×4 (06:38→20:55)
[2016-08-28] MEDS: Multivitamin Tab PO SCH (08:25)
[2016-08-28] MEDS: Ferrous Sulfate 325 MG TAB PO SCH (08:25)
[2016-08-28] MEDS: Escitalopram Oxalate 5 mg Tab PO SCH (08:25)
--- NOTE | 2016-08-28 20:06 | Progress Notes ---
DATE: 08/28/2016 COVERING FOR: Dr. Bowers. SUBJECTIVE: Chart reviewed and the patient interviewed. Also discussed the patient's condition with the staff and reviewed records and labs. The patient is still anxious and he is still in angry mood. The patient also wants to be left alone. The patient also is still selective as far as medications and he refused to take medications in the morning, but he did take it at night. He seems to be confused, irritable, and impulsive. ASSESSMENT: The patient is still psychotic and considered to be gravely disabled. TREATMENT PLAN: We will continue monitoring his behavior and his condition closely. Also, encouraged the patient to take his Depakote and he is currently taking Depakote in a dose of 375 mg in the morning plus 500 mg twice a day. We will continue the same dose and we will continue to follow up. Also, the patient continued to take Aricept 5 mg every day and Lexapro 5 mg in the morning. The patient also is on Seroquel mg in the morning and 250 mg at bedtime. At this time, we will increase Lexapro to 10 mg every morning and we will continue to follow up. JOB# [id number]
[2016-08-28] MEDS: Atorvastatin Calcium 10 MG TAB PO SCH (20:29)
[2016-08-29] MEDS: INSULIN ASPART SLIDING SCALE 100 UNITS/ML UNIT SUBQ SCH ×4 (06:38→20:39)
[2016-08-29] MEDS: Multivitamin Tab PO SCH (09:22)
[2016-08-29] MEDS: Ferrous Sulfate 325 MG TAB PO SCH (09:22)
[2016-08-29] MEDS: Atorvastatin Calcium 10 MG TAB PO SCH (20:35)
--- NOTE | 2016-08-29 21:13 | Progress Notes ---
DATE: 08/29/2016 SUBJECTIVE: Chart reviewed and the patient interviewed. Also, discussed the patient's condition with the staff and reviewed records and labs. The patient is still resisting care and still seems to be depressed and confused. The patient also is staying in his bed most of the time. The patient also is still having difficulty expressing himself. He also is still anxious and restless and at times resisting taking his medication. He also still wants to be left alone. During interview, the patient is confused and has sad affect. ASSESSMENT: The patient is still depressed and psychotic. TREATMENT PLAN: I increased Lexapro yesterday. We will continue the same dose of 10 mg every day. Also, continue Seroquel and Depakote and continue to monitor his behavior and his condition closely. [facility]# [id number]
[2016-08-30] MEDS: INSULIN ASPART SLIDING SCALE 100 UNITS/ML UNIT SUBQ SCH ×4 (06:31→20:43)
[2016-08-30] MEDS: Multivitamin Tab PO SCH (12:43)
[2016-08-30] MEDS: Ferrous Sulfate 325 MG TAB PO SCH (12:44)
[2016-08-30] MEDS: Atorvastatin Calcium 10 MG TAB PO SCH (20:38)
--- NOTE | 2016-08-31 02:20 | Progress Notes ---
DATE: 08/30/2016 SUBJECTIVE: The patient was seen, chart reviewed, and discussed with staff. The patient remains symptomatic. Still aggressive, agitated, irritable, spitting out medications, refusing medications, history of violence, wandering behaviors, poor orientation. Again poor orientation, poor insight, having difficulty with direction. Sleeping fairly well, eating with prompting, poor attention to ADLs. ASSESSMENT: The patient remains symptomatic, combative, violent, still refusing medications, spitting out medications. PLAN: We will wait for 14-day hold to and fill out a 30-day hold and a Riese petition moving forward given the patient's escalation of behaviors, violent behaviors, and med refusals. [facility]# [id number]
[2016-08-31] MEDS: INSULIN ASPART SLIDING SCALE 100 UNITS/ML UNIT SUBQ SCH ×4 (06:41→21:20)
[2016-08-31] MEDS: Ferrous Sulfate 325 MG TAB PO SCH (11:24)
[2016-08-31] MEDS: Multivitamin Tab PO SCH (11:25)
[2016-08-31] MEDS: Atorvastatin Calcium 10 MG TAB PO SCH (21:11)
--- NOTE | 2016-09-01 04:47 | Progress Notes ---
DATE: 08/31/2016 SUBJECTIVE: The patient was seen, chart reviewed, and discussed with staff. The patient is currently in the hospital. He remains aggressive, agitated, refusing medications, confused, disoriented, wandering, history of violence. The patient is disoriented, not answering any questions, irritable, remains impulsive, highly unpredictable. Staff concerned because of his compliance and poor treatment compliance. ASSESSMENT: The patient remains symptomatic, refusing medications, and refusing treatment, depressive. PLAN: We will likely need a new [facility] petition under the 30-day hold. Unable to discharge the patient at this time to a lower level of care given his agitation, medication refusals, and compliance issues. [facility]# [id number]
[2016-09-01] MEDS: INSULIN ASPART SLIDING SCALE 100 UNITS/ML UNIT SUBQ SCH ×4 (06:30→21:02)
[2016-09-01] MEDS: Multivitamin Tab PO SCH ×2 (08:27→08:38)
[2016-09-01] MEDS: Ferrous Sulfate 325 MG TAB PO SCH ×2 (08:28→08:37)
--- NOTE | 2016-09-01 20:09 | General Progress Note ---
Subjective - Review of Systems Service Date: 08/31/16 Subjective: Late entry: Patient doing fine denied any complaints no reported concern per nursing staff Objective - Results Result Diagrams: 08/03/16 17:35 08/03/16 17:35 Recent Labs: Laboratory Last Values WBC 9.5 Th/cmm (4.8-10.8) 08/03/16 17:35 RBC 4.60 Mil/cmm (3.80-5.80) 08/03/16 17:35 Hgb 13.1 gm/dL (12.6-17.4) 08/03/16 17:35 Hct 40.5 % (39.0-49.0) 08/03/16 17:35 MCV 87.9 fl (80-99) 08/03/16 17:35 MCH 28.5 pg (27.0-31.0) 08/03/16 17:35 MCHC Differential 32.4 pg (28.0-36.0) 08/03/16 17:35 RDW 13.2 % (11.5-20.0) 08/03/16 17:35 Plt Count 222 Th/cmm (150-400) 08/03/16 17:35 MPV 9.3 fl 08/03/16 17:35 Neutrophils % 59.0 % (40.0-80.0) 08/03/16 17:35 Lymphocytes % 32.5 % (20.0-50.0) 08/03/16 17:35 Monocytes % 6.8 % (2.0-10.0) 08/03/16 17:35 Eosinophils % 1.4 % (0.0-5.0) 08/03/16 17:35 Basophils % 0.3 % (0.0-2.0) 08/03/16 17:35 Sodium 145 mEq/L (136-145) 08/03/16 17:35 Potassium 3.8 mEq/L (3.5-5.1) 08/03/16 17:35 Chloride 106 mEq/L (98-107) 08/03/16 17:35 Carbon Dioxide 24.7 mEq/L (21.0-31.0) 08/03/16 17:35 Anion Gap 18.1 (7.0-16.0) H 08/03/16 17:35 BUN 21 mg/dL (7-25) 08/03/16 17:35 Creatinine 1.1 mg/dL (0.7-1.3) 08/03/16 17:35 Est GFR ( Amer) > 60.0 ml/min (>90) 08/03/16 17:35 Est GFR (Non-Af Amer) > 60.0 ml/min 08/03/16 17:35 BUN/Creatinine Ratio 19.1 08/03/16 17:35 Glucose 129 mg/dL (70-105) H 08/03/16 17:35 POC Glucose 178 MG/DL (70 - 105) H 09/01/16 16:08 Calcium 9.3 mg/dL (8.6-10.3) 08/03/16 17:35 Total Bilirubin 0.3 mg/dL (0.3-1.0) 08/03/16 17:35 AST 10 U/L (13-39) L 08/03/16 17:35 ALT 10 U/L (7-52) 08/03/16 17:35 Alkaline Phosphatase 47 U/L (34-104) 08/03/16 17:35 Total Protein 6.7 gm/dL (6.0-8.3) 08/03/16 17:35 Albumin 4.0 gm/dL (4.2-5.5) L 08/03/16 17:35 Globulin 2.7 gm/dL 08/03/16 17:35 Albumin/Globulin Ratio 1.5 (1.0-1.8) 08/03/16 17:35 Triglycerides 114 mg/dL (<150) 08/03/16 17:35 Cholesterol 142 mg/dL (<200) 08/03/16 17:35 LDL Cholesterol Direct 81 mg/dL (75-193) 08/03/16 17:35 HDL Cholesterol 46 mg/dL (23-92) 08/03/16 17:35 TSH 0.99 uIU/ml (0.34-5.60) 08/03/16 17:35 Urine Source CLEAN C 08/03/16 17:40 Urine Color YELLOW 08/03/16 17:40 Urine Clarity CLEAR (CLEAR) 08/03/16 17:40 Urine pH 5.5 08/03/16 17:40 Ur Specific [place] 1.025 (1.005-1.030) 08/03/16 17:40 Urine Protein 30 mg/dL (NEGATIVE) H 08/03/16 17:40 Urine Glucose (UA) NEGATIVE mg/dL (NEGATIVE) 08/03/16 17:40 Urine Ketones 15 mg/dL (NEGATIVE) H 08/03/16 17:40 Urine Blood SMALL (NEGATIVE) H 08/03/16 17:40 Urine Nitrate NEGATIVE (NEGATIVE) 08/03/16 17:40 Urine Bilirubin NEGATIVE (NEGATIVE) 08/03/16 17:40 Urine Urobilinogen 0.2 E.U./dL (0.2 - 1.0) 08/03/16 17:40 Ur Leukocyte Esterase NEGATIVE (NEGATIVE) 08/03/16 17:40 Urine RBC 2-5 /hpf (0-5) H 08/03/16 17:40 Urine WBC NONE SEEN /hpf (0-5) 08/03/16 17:40 Ur Epithelial Cells NONE SEEN /lpf (FEW) 08/03/16 17:40 Urine Bacteria NONE SEEN /hpf (NONE SEEN) 08/03/16 17:40 Salicylates 25.0 mg/L (30.0-100.0) L 08/03/16 17:35 Urine Opiates Screen NEGATIVE (NEGATIVE) 08/03/16 17:40 Urine Methadone Screen NEGATIVE (NEGATIVE) 08/03/16 17:40 Acetaminophen < 10.0 ug/mL (10.0-30.0) L 08/03/16 17:35 Ur Barbiturates Screen NEGATIVE (NEGATIVE) 08/03/16 17:40 Valproic Acid 34.3 ug/mL (50.0-100.0) L 08/11/16 08:00 Ur Tricyclics Screen NEGATIVE (NEGATIVE) 08/03/16 17:40 Ur Phencyclidine Scrn NEGATIVE (NEGATIVE) 08/03/16 17:40 Amphetamines Screen NEGATIVE (NEGATIVE) 08/03/16 17:40 U Methamphetamines Scrn NEGATIVE (NEGATIVE) 08/03/16 17:40 U Benzodiazepines Scrn NEGATIVE (NEGATIVE) 08/03/16 17:40 U Cocaine Metab Screen NEGATIVE (NEGATIVE) 08/03/16 17:40 U Cannabinoids Screen NEGATIVE (NEGATIVE) 08/03/16 17:40 Ethyl Alcohol < 10 mg/dL (0-10) 08/03/16 17:35 RPR NONREACTIVE (NONREACTIVE) 08/03/16 17:35 - Physical Exam Vitals and I&O: Vital Signs Temp 98.2 F 09/01/16 14:00 Pulse 62 09/01/16 14:00 Resp 20 09/01/16 19:41 BP 110/59 09/01/16 14:00 Pulse Ox 96 09/01/16 14:00 Intake & Output 09/01/16 09/01/16 09/02/16 06:59 18:59 06:59 Intake Total 120 840 Balance 120 840 Intake: Oral 120 840 Other: # Voids 1 # Bowel Movements 0 Active Medications: Current Medications Acetaminophen (Tylenol) 650 mg PO Q4HR PRN PRN Reason: Mild Pain / Temp above 100 Stop: 10/02/16 21:51 Al Hydrox/Mg Hydrox/Simethicone (Maalox) 30 ml PO Q4HR PRN PRN Reason: GI DISTRESS Stop: 10/02/16 21:51 Atorvastatin Calcium (Lipitor) 10 mg PO HS STEPHANIE PRN Reason: Protocol Stop: 10/03/16 20:59 Last Admin: 08/31/16 21:11 Dose: Not Given Clopidogrel Bisulfate (Plavix) 75 mg PO DAILY [facility] Stop: 10/03/16 08:59 Last Admin: 09/01/16 08:37 Dose: Not Given Divalproex Sodium (Depakote Sprinkle) 375 mg PO 0800 [facility] PRN Reason: Protocol Stop: 10/03/16 07:59 Last Admin: 09/01/16 08:37 Dose: Not Given Divalproex Sodium (Depakote Sprinkle) 500 mg PO BID@1200,1600 STEPHANIE PRN Reason: Protocol Stop: 10/03/16 11:59 Last Admin: 09/01/16 16:57 Dose: Not Given Docusate Sodium (Colace) 100 mg PO BID [facility] Stop: 10/03/16 08:59 Last Admin: 09/01/16 16:57 Dose: Not Given Donepezil HCl (Aricept) 5 mg PO HS [facility] Stop: 10/03/16 20:59 Last Admin: 08/31/16 21:11 Dose: Not Given Escitalopram Oxalate (Lexapro) 10 mg PO DAILY [facility] PRN Reason: Protocol Stop: 10/27/16 08:30 Last Admin: 09/01/16 08:37 Dose: Not Given Famotidine (Pepcid) 20 mg PO DAILY [facility] Stop: 10/03/16 08:59 Last Admin: 09/01/16 08:37 Dose: Not Given Ferrous Sulfate (Iron) 325 mg PO DAILY [facility] Stop: 10/03/16 08:59 Last Admin: 09/01/16 08:37 Dose: Not Given Insulin Aspart (Novolog Insulin Sliding Scale) 0 units SUBQ ACHS STEPHANIE PRN Reason: Protocol Stop: 10/03/16 20:59 Last Admin: 09/01/16 16:52 Dose: 2 units Lorazepam (Ativan) 0.5 mg PO Q6HR PRN; Protocol PRN Reason: Anxiety Stop: 10/10/16 15:07 Last Admin: 08/29/16 13:29 Dose: 0.5 mg Memantine (Namenda) 10 mg PO BID [facility] Stop: 10/03/16 08:59 Last Admin: 09/01/16 16:57 Dose: Not Given Metformin HCl (Glucophage) 500 mg PO BIDWM [facility] Stop: 10/05/16 17:59 Last Admin: 09/01/16 18:10 Dose: Not Given Multivitamins/Vitamin C (Theragran) 1 tab PO DAILY [facility] Stop: 10/03/16 08:59 Last Admin: 09/01/16 08:38 Dose: Not Given Quetiapine Fumarate (Seroquel) 12.5 mg PO DAILY STEPH[facility]IE PRN Reason: Protocol Stop: 10/03/16 08:59 Last Admin: 09/01/16 08:38 Dose: Not Given Quetiapine Fumarate (Seroquel) 250 mg PO HS [facility] Stop: 10/25/16 13:32 Last Admin: 08/31/16 21:16 Dose: 100 mg Zolpidem Tartrate (Ambien) 5 mg PO HS PRN PRN Reason: Insomnia Stop: 10/10/16 15:05 Cardiovascular: Regular rate Lungs: Clear to auscultation Abdomen: Soft Assessment/Plan - Assessment Assessment: Diabetes Mellitus Hyperlipidemia GERD Alzheimer's dementia Psych disorder - Plan Plan: patient doing fine Continue current treatment Psych management per Psychiatrist Nutritional Asmnt/Malnutr-PDOC - Dietary Evaluation Malnutrition Findings (Please click <Entered> for more info): Nutritional Asmnt/Malnutrition Start: 08/05/16 15: 08 Text: Status: Complete Freq: Document 08/05/16 15:08 DYLAN (Rec: 08/05/16 15:33 GSUN [id number]) Nutritional Asmnt/Malnutrition Patient General Information Nutritional Screening Moderate Risk Screening Diagnosis Reason for visit: acute psychosis Pertinent Medical Hx/Surgical Hx DM, hyperlipidemia, seizure disorders, psych disorder, Alzheimer's dementia Subjective Information 65 year old male from SNF. Pt was in isolation room due to aggressive behavior during visit. No meal activity recorded on EMR. Spoke to nursing staff, nursing staff stated pt is confused and may be aggressive at times, " sometimes eat and sometimes does not depending on mood." Current Diet Order/ Nutrition Support Regular, CALLY, CCHO Pertinent Medications Maalox, Lipitor, Colace, Pepcid, Iron, Novolog, MOM, Glucophage, Theragran, Seroquel Pertinent Labs 08/03: glucose 129H Nutritional Hx/Data Height 1.8 m Height (Calculated Centimeters) 180.3 Current Weight (lbs) 79.832 kg Weight (Calculated Kilograms) 79.8 Weight (Calculated Grams) 15017.3 [place] Body Weight 172 Weight Status Approriate GI Symptoms Food Allergies No Usual diet at home [facility]: regular, CALLY, CCHO Skin Integrity/Comment: Jamil Husain. Skin intact. Estimated Nutritional Goals BEE in Kcals: Using Current wt Calories/Kcals/Kg CBW 176lb/80kg Kcals Calculated 2000-2400kcal (25-30kcal/kg) Protein: Using Current wt Protein Calculated 80g (1g/kg) Fluid: ml 2000-2400ml (1ml/kcal) Nutritional Problem 1. Problem Problem Iandequate carbohydrate intake related to Etiology estimated nutritional needs aeb Signs/Symptoms: current diet order [id number] does not provide to meet minimum CCHO needs. Intervention/Recommendation Comments 1. Recommend [id number] to promote glycemic control while meeting minimal carb needs. 2. Nursing staff to record percent of intake, no meal activities recorded since admission, day 2. Expected Outcomes/Goals Expected Outcomes/Goals 1. PO intake to meet at least 75% of estimated nutritional needs.
[2016-09-01] MEDS: Atorvastatin Calcium 10 MG TAB PO SCH (21:02)
--- NOTE | 2016-09-02 02:13 | Progress Notes ---
DATE: 09/01/2016 SUBJECTIVE: The patient was seen, chart reviewed, discussed with staff. The patient remains aggressive, agitated, impulsive, unpredictable, wandering behaviors, refusing medication, refusing treatment, lashing out at staff at times, does not know where he is or what is going on, refusing interview, disoriented, sleeping fairly well, eating with prompting, ADLs with prompting. ASSESSMENT: The patient continues to refuse treatment, refusing medications, impulsive, unpredictable, dangerous, history of violence and aggression. PLAN: Initiate a 3-day hold, I am trying to schedule another Riese hearing to medicate the patient given his history of violence, combative behaviors. [facility]# [id number]
[2016-09-02] MEDS: INSULIN ASPART SLIDING SCALE 100 UNITS/ML UNIT SUBQ SCH ×4 (06:40→20:51)
[2016-09-02] MEDS: Ferrous Sulfate 325 MG TAB PO SCH ×2 (08:10→08:18)
[2016-09-02] MEDS: Multivitamin Tab PO SCH ×2 (08:11→08:18)
[2016-09-02] MEDS: Atorvastatin Calcium 10 MG TAB PO SCH (20:50)
--- NOTE | 2016-09-02 23:23 | Progress Notes ---
DATE: 09/02/2016 SUBJECTIVE: The patient seen, chart reviewed, discussed with staff. The patient is still aggressive, agitated, confused, combative, refusing medications, currently on a 30-day hold. We are currently pending a Riese hearing, which is going to be on Tuesday. 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 The patient is not safe for a lower level of care, still gets combative, upset. ASSESSMENT: The patient is refusing medications, disoriented, angry, aggressive. PLAN: We will continue to monitor for any behavioral disturbances and titrate current medication regimen and we are currently pending a Riese hearing. JOB# [id number]
[2016-09-03] MEDS: INSULIN ASPART SLIDING SCALE 100 UNITS/ML UNIT SUBQ SCH ×4 (06:41→20:50)
[2016-09-03] MEDS: Ferrous Sulfate 325 MG TAB PO SCH (09:45)
[2016-09-03] MEDS: Multivitamin Tab PO SCH (09:45)
[2016-09-03] MEDS: Atorvastatin Calcium 10 MG TAB PO SCH (20:46)
--- NOTE | 2016-09-04 04:15 | Progress Notes ---
DATE: 09/03/2016 SUBJECTIVE: The patient seen, chart reviewed, discussed with staff. The patient ___not_ taking his medications. He is somewhat calmer, more cooperative , but he still requires a lot of prompting to take his medications. History of violent and erratic behaviors, combative behaviors, ____sporadic med compliance. He remains confused, disoriented, somewhat better attention to ADLs, still wandering behaviors, disorientation. ASSESSMENT: The patient remains symptomatic, combative, aggressive. There are continued safety concerns, he does continue to refuse medications. He has taken his medications this morning; however, the staff is somewhat optimistic. PLAN: Continue to monitor. I am waiting for the court to come on Tuesday for a Riese hearing. JOB# [id number] FREDERICK
[2016-09-04] MEDS: INSULIN ASPART SLIDING SCALE 100 UNITS/ML UNIT SUBQ SCH ×4 (06:40→20:26)
--- NOTE | 2016-09-04 09:25 | Progress Notes ---
DATE: 09/04/2016 SUBJECTIVE: The patient seen, chart reviewed, discussed with staff. Staff noting patient is calmer, he has been taking his medications. He is more engaged, speaking more with staff, less impulsive, no hitting episodes. We are waiting for a Riese petition on Tuesday by day that the patient continues to take his medications. I will likely cancel it given that he has been compliant, but again, I will await until Tuesday to see if he is med compliant because he has been med compliant. The patient is sleeping well, eating well. ASSESSMENT: The patient seems to be improving, remains impulsive, unpredictable, still actively med compliant, but has been better compliant over the past few days. PLAN: We will monitor and followup. Increase Seroquel today. JOB# [id number]
[2016-09-04] MEDS: Multivitamin Tab PO SCH (10:12)
[2016-09-04] MEDS: Ferrous Sulfate 325 MG TAB PO SCH (10:12)
[2016-09-04] MEDS: Atorvastatin Calcium 10 MG TAB PO SCH (20:26)
[2016-09-04] MEDS: QUETIAPINE FUMARATE PO SCH (20:27)
[2016-09-05] MEDS: INSULIN ASPART SLIDING SCALE 100 UNITS/ML UNIT SUBQ SCH ×4 (07:55→21:17)
[2016-09-05] MEDS: Ferrous Sulfate 325 MG TAB PO SCH ×2 (09:13→09:24)
[2016-09-05] MEDS: Multivitamin Tab PO SCH ×2 (09:14→09:24)
--- NOTE | 2016-09-05 20:05 | Progress Notes ---
DATE: 09/05/2016 SUBJECTIVE: The patient is seen, chart reviewed, discussed with staff. The patient remains symptomatic, still angry, upset, still intermittently refusing medications, labile, wandering. He seems to be calming down, less violent. He has been taking his medications more often, but does continue to refuse often and ____, not really speaking to me on the interview and just shrugging his shoulders. ASSESSMENT: The patient remains symptomatic, aggressive, refusing treatment. PLAN: We will likely need to follow through on the Riese hearing tomorrow. He has been intermittently med compliant, given his history and current presentation, there are continued concerns for safety. [facility]# [id number]
[2016-09-05] MEDS: Atorvastatin Calcium 10 MG TAB PO SCH (21:18)
[2016-09-05] MEDS: QUETIAPINE FUMARATE PO SCH (21:18)
[2016-09-06] MEDS: INSULIN ASPART SLIDING SCALE 100 UNITS/ML UNIT SUBQ SCH ×4 (06:38→20:48)
[2016-09-06] MEDS: Ferrous Sulfate 325 MG TAB PO SCH (10:54)
[2016-09-06] MEDS: Multivitamin Tab PO SCH (10:54)
[2016-09-06] MEDS: Atorvastatin Calcium 10 MG TAB PO SCH (20:43)
--- NOTE | 2016-09-07 04:20 | Progress Notes ---
DATE: 09/06/2016 SUBJECTIVE: The patient seen, chart reviewed, discussed with staff. The patient remains symptomatic, continues to refuse medications, confused, disoriented, impulsive, unpredictable. History of violence, combative behaviors. The patient is sleeping well, eating well, more redirectable, calmer on exam. Court is here for the Riese hearing. No medication side effects noted, erratically taking medications. ASSESSMENT: The patient remains symptomatic, impulsive, unpredictable. History of violence, concerns for safety of others, disoriented, confused, disorganized. PLAN: Continue to monitor. We will adjust medications. We will progress with the Riese hearing today and try to medicate the patient with the help of the __court__. JOB# [id number] FREDERICK
[2016-09-07] MEDS: INSULIN ASPART SLIDING SCALE 100 UNITS/ML UNIT SUBQ SCH ×4 (06:37→21:01)
[2016-09-07] MEDS: Ferrous Sulfate 325 MG TAB PO SCH (08:51)
[2016-09-07] MEDS: Multivitamin Tab PO SCH (08:51)
[2016-09-07] MEDS: Atorvastatin Calcium 10 MG TAB PO SCH (20:56)
[2016-09-08] MEDS: INSULIN ASPART SLIDING SCALE 100 UNITS/ML UNIT SUBQ SCH ×4 (06:32→21:12)
[2016-09-08] MEDS: Multivitamin Tab PO SCH (08:44)
[2016-09-08] MEDS: Ferrous Sulfate 325 MG TAB PO SCH (08:45)
[2016-09-08] MEDS: Atorvastatin Calcium 10 MG TAB PO SCH (21:09)
[2016-09-09] MEDS ORDERED: Haloperidol Lactate 5 mg/mL 1mL Vial IM PRN (06:36)
[2016-09-09] MEDS: INSULIN ASPART SLIDING SCALE 100 UNITS/ML UNIT SUBQ SCH ×4 (06:37→21:18)
[2016-09-09] MEDS: Ferrous Sulfate 325 MG TAB PO SCH (08:39)
[2016-09-09] MEDS: Multivitamin Tab PO SCH (08:40)
[2016-09-09] MEDS: Atorvastatin Calcium 10 MG TAB PO SCH (21:17)
[2016-09-10] MEDS: INSULIN ASPART SLIDING SCALE 100 UNITS/ML UNIT SUBQ SCH ×3 (08:52→17:29)
[2016-09-10] MEDS: Ferrous Sulfate 325 MG TAB PO SCH (08:53)
[2016-09-10] MEDS: Multivitamin Tab PO SCH (08:58)
[2016-09-10] MEDS: Atorvastatin Calcium 10 MG TAB PO SCH (20:29)
[2016-09-11] MEDS: INSULIN ASPART SLIDING SCALE 100 UNITS/ML UNIT SUBQ SCH ×4 (08:15→20:11)
[2016-09-11] MEDS: Ferrous Sulfate 325 MG TAB PO SCH (08:16)
[2016-09-11] MEDS: Multivitamin Tab PO SCH (08:16)
[2016-09-11] MEDS: Atorvastatin Calcium 10 MG TAB PO SCH (20:34)
[2016-09-12] MEDS: INSULIN ASPART SLIDING SCALE 100 UNITS/ML UNIT SUBQ SCH ×4 (06:40→20:12)
[2016-09-12] MEDS: Ferrous Sulfate 325 MG TAB PO SCH (10:26)
[2016-09-12] MEDS: Multivitamin Tab PO SCH (10:28)
[2016-09-12] MEDS: Atorvastatin Calcium 10 MG TAB PO SCH (20:05)
[2016-09-13] MEDS: INSULIN ASPART SLIDING SCALE 100 UNITS/ML UNIT SUBQ SCH ×3 (06:35→17:54)
[2016-09-13] MEDS: Ferrous Sulfate 325 MG TAB PO SCH (09:13)
[2016-09-13] MEDS: Multivitamin Tab PO SCH (09:16)
--- NOTE | 2016-10-06 15:21 | Discharge Summary ---
DATE OF DISCHARGE: 09/13/2016 JUSTIFICATION FOR HOSPITALIZATION: The patient was brought in by nursing facility, agitated, yelling and violent. CHIEF COMPLAINT: "Go away." HISTORY OF PRESENT ILLNESS: A 65-year-old male with history of dementia, aggressive behaviors, violent behaviors, uncooperative, not answering questions. The patient was hitting staff, hitting other peers, intrusive, going into other patients rooms, out of control behaviors, refusing ADLs, refusing treatment. PAST PSYCHIATRIC HISTORY: Dementia. FAMILY HISTORY: Unknown. SOCIAL HISTORY: Living in a nursing facility. Sons are involved. I spoke with them during the course of his hospitalization. MENTAL STATUS EXAMINATION: Please see full psych eval for details. PROVISIONAL DIAGNOSIS: See initial eval. MEDICAL DIAGNOSIS: Diabetes. HOSPITAL COURSE: After initial assessment, the patient was restarted on medications. However, he was refusing. Riese petition was filed. Around the time of the Riese, he started to take his medications. It took some time for the Riese to even happen because of [employer] architect was not available. The court decided to essentially cancel the Riese and not ____ words, but I could ask them to come back. The patient again started to refuse his medications, but by that time, the 14-day was nearly , I put him on a 30-day hold. The court did come, the Riese was upheld and we began to medicate him including with Haldol and long-acting injectable medications. Over the course of the hospitalization, the patient improved, albeit slowly, improved mood, getting along better with staff and peers. No longer violent. No longer agitated, still confused, disoriented and refusing interview most of the time, but no longer is aggressive. CONDITION UPON DISCHARGE: Improved. Fair attention to ADLs and allowing attention to ADLs. Fair eye contact. Speech, very little speech content. Mood not answering. Affect flat. Thought processes were confused. Thought content, no SI, no HI. No overt psychotic symptoms, redirectable. By 09/13/2016, there was no longer any further medical justification and placement was confirmed and ____ placement. DISCHARGE DIAGNOSES: Dementia with behavioral disturbances; psychosis, unspecified. MEDICAL: As noted. PROGNOSIS: The patient follows up with outpatient mental services and continues to accept a long-acting injectable antipsychotic treatment. Prognosis will improve, otherwise guarded. JOB# [id number]
== END 2016-09-13 16:40 | disposition home or self-care (01) | DRG 57 ==
LOC: ER 17:23 → GERO 20:10
PROVIDERS: ADMIT Psychiatry & Neurology Psychiatry; ATTEND Psychiatry & Neurology Psychiatry
DX: G30.9 Alzheimer's disease, unspecified (principal); F02.81 Dementia in other diseases classified elsewhere, unspecified severity, with behavioral disturbance; F29 Unspecified psychosis not due to a substance or known physiological condition; Z53.29 Procedure and treatment not carried out because of patient's decision for other reasons; E11.9 Type 2 diabetes mellitus without complications; E78.5 Hyperlipidemia, unspecified; G40.909 Epilepsy, unspecified, not intractable, without status epilepticus; I10 Essential (primary) hypertension; F22 Delusional disorders; Z86.73 Personal history of transient ischemic attack (TIA), and cerebral infarction without residual deficits; Z91.83 Wandering in diseases classified elsewhere
CPT/HCPCS: 36415-UA; 80053-TC; 80061-TC; 80164-TC; 80307; 80320-TC; 80329-TC; 81001-TC; 82948-90; 84443-TC; 85025-TC; 86592-TC; 90899; 93005; G0410; J1200; J1630; J1631; J1815; J2060; X6436; Z7610